=== PATIENT | male | born 1995 | race Caucasian/White ===

== ENCOUNTER 2020-03-08 16:17 | Outpatient (REF) | payer OTHER, SELFPAY | END 2020-03-08 16:18 | disposition home or self-care (01) | LOC: HO.LAB 16:17 | PROVIDERS: Visit Provider Internal Medicine | DX: Z20.828 Contact with and (suspected) exposure to other viral communicable diseases (principal) | CPT/HCPCS: C9803; U0003 ==

== ENCOUNTER → 2020-06-20 09:06 | Outpatient (BNVA) | payer OTHER, SELFPAY | PROVIDERS: Visit Provider Physician Assistant Medical | DX: S67.02XA Crushing injury of left thumb, initial encounter (principal); S61.012A Laceration without foreign body of left thumb without damage to nail, initial encounter; L08.9 Local infection of the skin and subcutaneous tissue, unspecified; W18.30XA Fall on same level, unspecified, initial encounter | CPT/HCPCS: 73130; 99203 ==

== ENCOUNTER → 2020-06-27 10:48 | Outpatient (BNVA) | payer OTHER, SELFPAY | PROVIDERS: Visit Provider Physician Assistant Medical | DX: S61.211A Laceration without foreign body of left index finger without damage to nail, initial encounter (principal); W31.2XXA Contact with powered woodworking and forming machines, initial encounter | CPT/HCPCS: 12001; 29085; 99203 ==

== ENCOUNTER → 2020-06-29 09:31 | Outpatient (BNVA) | payer OTHER, SELFPAY | PROVIDERS: Visit Provider Physician Assistant Medical | DX: S61.211D Laceration without foreign body of left index finger without damage to nail, subsequent encounter (principal); X58.XXXD Exposure to other specified factors, subsequent encounter | CPT/HCPCS: 99213 ==

== ENCOUNTER → 2020-07-03 12:49 | Outpatient (BNVA) | payer SELFPAY | PROVIDERS: Visit Provider Orthopaedic Surgery | DX: S61.210A Laceration without foreign body of right index finger without damage to nail, initial encounter (principal) | CPT/HCPCS: 99202 ==

== ENCOUNTER 2022-12-23 13:51 | Outpatient (REF) | payer OTHER, SELFPAY ==
--- NOTE | ~2022-12-23 | XR_ITS ---
EXAMINATION: XR SHOULDER, LEFT CLINICAL INFORMATION: Pain Chronic left shoulder pain, no injury. COMPARISON: None available. TECHNIQUE: AP external rotation, Grashey, scapular Y, and axillary views of the left shoulder. FINDINGS: The bones and soft tissues are normal. No fracture. Glenohumeral and acromioclavicular alignment is anatomic with normal joint space. No abnormal soft tissue calcifications. XR/XR shoulder LT min 2V IMPRESSION: No bony abnormality.
--- NOTE | ~2022-12-23 | XR_ITS ---
EXAMINATION: XR BILATERAL KNEES CLINICAL INFORMATION: Reason for Exam PAIN COMPARISON: None TECHNIQUE: 4 views of the bilateral knees FINDINGS: RIGHT KNEE: No acute fracture or dislocation. Joint spaces are maintained. No joint effusion. Soft tissues are unremarkable. LEFT KNEE: No acute fracture or dislocation. Joint spaces are maintained. No joint effusion. Soft tissues are unremarkable. XR/XR knee LT 3V IMPRESSION: * No acute osseous abnormality.
--- NOTE | ~2022-12-23 | XR_ITS ---
EXAMINATION: XR BILATERAL KNEES CLINICAL INFORMATION: Reason for Exam PAIN COMPARISON: None TECHNIQUE: 4 views of the bilateral knees FINDINGS: RIGHT KNEE: No acute fracture or dislocation. Joint spaces are maintained. No joint effusion. Soft tissues are unremarkable. LEFT KNEE: No acute fracture or dislocation. Joint spaces are maintained. No joint effusion. Soft tissues are unremarkable. XR/XR knee RT 3V IMPRESSION: * No acute osseous abnormality.
== END 2022-12-23 13:52 | disposition home or self-care (01) ==
LOC: HO.HHCX 13:51
PROVIDERS: Visit Provider Family Medicine
DX: M25.512 Pain in left shoulder (principal); Z13.89 Encounter for screening for other disorder
CPT/HCPCS: 73030; 73562

== ENCOUNTER 2023-08-08 02:27 | Emergency (ER) | payer OTHER, SELFPAY ==
--- NOTE | ~2023-08-08 | XR_ITS ---
EXAMINATION: XR CHEST CLINICAL INFORMATION: Shortness of breath COMPARISON: 01/09/2015. TECHNIQUE: Frontal view of the chest was obtained. FINDINGS: Lung volumes are symmetric. No focal consolidation is seen. No evidence of pneumothorax, pleural effusion, or pulmonary edema. The cardiomediastinal contour is unremarkable. No acute osseous findings are seen. XR/XR chest 1V IMPRESSION: No acute cardiopulmonary findings.
[2023-08-08 02:33] VITALS: BP 129/84; PULSE 95; RESP 20; TEMP 37.5; O2SAT 97; BMI 25.0
--- NOTE | 2023-08-08 02:36 | ECG_ITS ---
Test Reason : SOB Blood Pressure : / mmHG Vent. Rate : 096 BPM Atrial Rate : 096 BPM P-R Int : 176 ms QRS Dur : 110 ms QT Int : 324 ms P-R-T Axes : 060 055 051 degrees QTc Int : 409 ms Normal sinus rhythm Incomplete right bundle branch block Borderline ECG No previous ECGs available Referred By: Generic ED Physician Electronically Signed By:Timoteo Toussaint
[2023-08-08 02:49] LABS: MANUAL DIFF FLAG NO
[2023-08-08 02:50] LABS: Basophils Percent Auto 0.5 % (0-2); Eosinophils Absolute Auto 0.7 X10*3/uL (0.0-0.4); Eosinophils Percent Auto 7.6 % (0-4); Hematocrit 41.7 % (42.0-52.0); Hemoglobin 14.9 g/dl (14.0-18.0); Imm Gran Abs Auto 0.02 X10*3/uL (0.00-0.03); Imm Gran Pct Auto 0.2 % (0.0-0.4); Lymphocytes Absolute Auto 1.8 X10*3/uL (1.2-4.9); Mean Corpuscular HGB Conc 35.7 g/dl (31.0-36.0); Mean Corpuscular Hemoglobin 30.2 pg (27.0-33.0); Mean Corpuscular Volume 84.6 fL (80.0-98.0); Mean Platelet Volume 10.7 fL (9.4-12.4); Monocytes Absolute Auto 0.8 X10*3/uL (0.1-1.2); Monocytes Percent Auto 9.1 % (2-11); Neutrophils Absolute Auto 5.4 x10*3/uL (2.0-8.3); Neutrophils Percent Auto 61.6 % (45-73); Platelet Count 209 X10*3/uL (160-400); Red Blood Count 4.93 X10*6/uL (4.60-5.80); Red Cell Distribution Width 11.9 % (11.0-16.0); White Blood Count 8.7 X10*3/uL (4.8-10.8)
--- NOTE | 2023-08-08 02:53 | ED_ITS ---
HPI - SOB/Dyspnea General Chief Complaint: Dyspnea Stated Complaint: SOB/ASTHMA Time Seen by Provider: 08/08/23 02:52 Source: patient Mode of arrival: ambulatory Limitations: no limitations History of Present Illness HPI Narrative: Patient history of asthma been having shortness of breath since yesterday had cold symptoms with sore throat had low-grade fever yesterday dry cough using inhaler does not get sick very often Related Data Previous Rx's ?Medication ?Instructions ?Recorded benzonatate 200 mg capsule 200 mg PO TID PRN cough #20 caps 08/08/23 cefuroxime axetil 500 mg tablet 500 mg PO BID 5 days #10 tabs 08/08/23 prednisone 20 mg tablet 40 mg (2 x 20 mg) PO DAILY #10 tabs 08/08/23 Allergies Allergy/AdvReac Type Severity Reaction Status Date / Time No Known Allergies Allergy Verified 08/08/23 02:35 Review of Systems 2 Review of Systems: Yes all other systems are reviewed and are negative [facility] Social History Social History Alcohol intake: never Smoked in Last 30 Days: Yes Use of substances other than those prescribed or required for medical reasons: No Advance Directives: No Advance Directives Information Provided: Yes Current occupational status: employed Current occupation: [employer]/rt handed Physical Exam 2 Vital Signs: Vital Signs: Last Vital Signs Temp 97.9 F 08/08/23 05:28 Pulse 82 08/08/23 05:28 Resp 16 08/08/23 05:28 BP 113/75 08/08/23 05:28 Pulse Ox 96 08/08/23 05:28 O2 Del Method Room Air 08/08/23 05:28 BMI result Body Mass Index 25.0 Appearance: Alert. Oriented X3. No acute distress. ENT: Pharynx erythematous Oral Mucosa moist clear rhinorrhea Neck: Normal inspection. Neck supple. CVS: Normal heart rate and rhythm. Pulses normal. Respiratory: No respiratory distress. Equal air entry bilateral, no wheezing/rales/rhonchi prolonged expiration Abdomen: Soft and nontender. Skin: Skin warm and dry. Normal skin color. Normal skin turgor. Extremities: No lower extremity edema. No calf tenderness Neuro: Oriented X 3. Medications Administered Discontinued Medications Generic Name Dose Route Start Last Admin Trade Name Freq PRN Reason Stop Dose Admin Albuterol Sulfate 2.5 mg/ 5 mg 08/08/23 03:05 08/08/23 03:16 Albuterol Sulfate 2.5 mg INHALE 08/08/23 03:06 5 mg ONCE ONE Administration Dexamethasone 10 mg 08/08/23 02:56 08/08/23 03:08 Dexamethasone 2 Mg Tablet PO 08/08/23 02:57 10 mg ONCE ONE Administration Medical Decision Making Medical Decision Making [facility] Narrative: Patient with asthmatic bronchitis with sore throat discharge patient home on prednisone and Ceftin Differential Diagnosis Differential Diagnoses: The differential diagnosis associated with the presentation includes Viral pharyngitis/viral syndrome/COVID/flu Lab Data [facility] Lab Attestation statement: I reviewed the patient's lab results. 08/08/23 02:44 08/08/23 02:44 Labs: Lab Results 08/08/23 08/08/23 Range/Units 02:44 03:00 WBC 8.7 (4.8-10.8) X10*3/uL RBC 4.93 (4.60-5.80) X10*6/uL Hgb 14.9 (14.0-18.0) g/dl Hct 41.7 L (42.0-52.0) % MCV 84.6 (80.0-98.0) fL MCH 30.2 (27.0-33.0) pg MCHC 35.7 (31.0-36.0) g/dl RDW 11.9 (11.0-16.0) % Plt Count 209 (160-400) X10*3/uL MPV 10.7 (9.4-12.4) fL Immature Gran % (Auto) 0.2 (0.0-0.4) % Neut % (Auto) 61.6 (45-73) % Lymph % (Auto) 21.0 (20-40) % Petroleum % (Auto) 9.1 (2-11) % Eos % (Auto) 7.6 H (0-4) % Baso % (Auto) 0.5 (0-2) % Lymph # (Auto) 1.8 (1.2-4.9) X10*3/uL Petroleum # (Auto) 0.8 (0.1-1.2) X10*3/uL Eos # (Auto) 0.7 H (0.0-0.4) X10*3/uL Baso # (Auto) 0.0 (0.0-0.2) X10*3/uL Abs Immat Gran (auto) 0.02 (0.00-0.03) X10*3/uL Absolute Neuts (auto) 5.4 (2.0-8.3) x10*3/uL Absolute Nucleated RBC 0.000 (0.0-0.012) X10*3/uL Nucleated RBC % (auto) 0.0 (0.0-0.2) /100WBC Sodium 142 (135-145) mmol/L Potassium 3.4 (3.3-5.1) mmol/L Chloride 107 (96-108) mmol/L Carbon Dioxide 26 (22-29) mmol/L Anion Gap 12 (12-20) BUN 17 H (9-16) mg/dL Creatinine 1.03 (0.5-1.4) mg/dL Estim Creat Clear Calc 93.7 Estimated GFR > 60 Random Glucose 119 H (60-115) mg/dL Calcium 10.0 (8.4-10.2) mg/dL Troponin I High Sens < 2.7 (<3.5-35.0) ng/L Influenza Type A (PCR) NEGATIVE (Negative) Influenza Type B (PCR) NEGATIVE (Negative) RSV RNA Qual (PCR) NEGATIVE (Negative) SARS-CoV-2 RNA (RT-PCR) NEGATIVE (Negative) S. pyogenes GrpA GEORGE Negative (Negative) Discharge Plan Discharge Clinical Impression: Asthma with exacerbation, Upper respiratory infection, viral Patient Disposition: Home, Self-Care Instructions: Asthma (ED), Upper Respiratory Infection (ED) Additional Instructions: Use your inhaler 2 puffs every 4-6 hours as needed for wheezing Prednisone and antibiotic as prescribed Cough drops as prescribed Your COVID, influenza/RSV/strep are negative Prescriptions: New benzonatate 200 mg capsule 200 mg PO TID PRN (Reason: cough) Qty: 20 0RF prednisone 20 mg tablet 40 mg PO DAILY Qty: 10 0RF cefuroxime axetil 500 mg tablet 500 mg PO BID 5 Days Qty: 10 0RF Print Language: [place]se
[2023-08-08] MEDS: dexAMETHasone 2 MG TABLET 10 MG PO (03:08)
[2023-08-08 03:11] VITALS: PULSE 91; RESP 18; O2SAT 96
[2023-08-08 03:16] LABS: Anion Gap 12 (12-20); Blood Urea Nitrogen 17 mg/dL (9-16); Carbon Dioxide 26 mmol/L (22-29); Chloride 107 mmol/L (96-108); Creatinine Clr Calc Pharmacy 93.7; Estimated Glomerular Filt Rate > 60; Glucose Random 119 mg/dL (60-115); Potassium 3.4 mmol/L (3.3-5.1); Sodium 142 mmol/L (135-145)
[2023-08-08] MEDS: Albuterol Sulfate 2.5 MG, Albuterol Sulfate (0.083%) 2.5 MG 5 MG INHALE (03:16)
[2023-08-08 03:21] LABS: IDNOW Serial# 6674DD1D; Strep A Nucleic Acid Negative (Negative)
[2023-08-08 03:27] LABS: Troponin-I High Sensitivity < 2.7 ng/L (<3.5-35.0)
[2023-08-08 03:51] LABS: Influenza A PCR NEGATIVE (Negative); Influenza B PCR NEGATIVE (Negative); Resp Syncy Virus RNA Qual PCR NEGATIVE (Negative); SARS COV2 PCR INHOUSE NEGATIVE (Negative)
[2023-08-08 05:28] VITALS: BP 113/75; PULSE 82; RESP 16; TEMP 36.6; O2SAT 96
[2023-08-08 05:40] VITALS: BP 113/75; PULSE 82; RESP 16; TEMP 36.6; O2SAT 96
== END 2023-08-08 05:41 | disposition home or self-care (01) ==
PROVIDERS: Emergency Provider Internal Medicine
DX: J45.901 Unspecified asthma with (acute) exacerbation (principal); J06.9 Acute upper respiratory infection, unspecified; R06.02 Shortness of breath; R50.9 Fever, unspecified; R05.9 Cough, unspecified; J02.9 Acute pharyngitis, unspecified
CPT/HCPCS: 0241U; 36415; 71045; 80048; 84484; 85025; 87651; 93005; 94640; 94664; 99284; 99285; J8540

== ENCOUNTER → 2023-08-08 02:36 | Outpatient (BNV) | payer OTHER, SELFPAY | PROVIDERS: Emergency Provider Internal Medicine; Visit Provider Internal Medicine Cardiovascular Disease | DX: R06.02 Shortness of breath (principal) | CPT/HCPCS: 93010 ==

== ENCOUNTER 2024-04-25 11:18 | Outpatient (REF) | payer OTHER, SELFPAY ==
--- OUTSIDE RECORDS SUMMARY | 2024-04-25 16:13 | XMS_ITS | Encounter Summary ---
Author Organization [facility] Address [address] [place] [address] Care Team Providers Care Fine Chemicals Operator Name Role Phone Ann-Marie Maldonado MD Primary Care Provider [phone] Reason for Visit * Reason Comments Pre-visit Planning SDOH Screening negat cl and Tobacco screening negative Encounter Details Date Type Department Care Team ([facility] st Contact Info) Description 04/14/2024 Patient Outreach [facility] [address], [place] [phone] Ann-Marie Maldonado MD [address] [place] [address] Pre-visit Planning (SDOH Screening negative and Tobacco screening negative) Social History Tobacco Use Types Packs/Day Years Used Date Smoking Tobacco: Former Cigarettes Passive Smoke Exposure: Current Smokeless Tobacco: Current Comments:Smokes vapes Alcohol Use Standard Drinks/Week Comments Not Asked 0 (1 standard drink = 0.6 oz pur e alcohol) rarely drinks beer Depression Answer Date Recorded Patient Health Questionnaire-9 Score 6 01/12/2024 Patient Health Questionnaire-9 Score 6 01/12/2024 Last PHQ-9: Questionnaire Data Not on file 1 Housing Stability Answer Date Recorded What is your housing situation today? I have tiffany mcintyre 01/12/[address] you li ve. Do you have problems with any of the following? None of the above 01/12/2024 Food Insecurity Answer Date Recorded Within the past 12 months, y ou worried that your food would run out before you got money to buy more: Never True 01/12/2024 Within the past 12 months,th e food you bought just didn't last and you didn't have enough money to get more: Never True Transportation Answer Date Recorded In the past 12 months, has l ack of transportation kept you from medical appts, meetings, work or from getting things needed for daily living? No 01/12/2024 Utilities Answer Date Recorded In the past 12 months, has t he electric, gas, oil or water company threatened to shut off services in your home? No 01/12/2024 Depression Answer Date Recorded Patient Health Questionnaire-2 Score 2 01/12/2024 Internet Access Answer Date Recorded Internet Access Q1 Yes 01/12/2024 Internet Access Q2 Not on file 01/12/2024 Sex and Gender Information Value Date Recorded Sex Assigned at Male 01/27/2022 10:16 AM EDT Legal Sex Male 10:16 AM EDT Gender Identity Male 01/27/2022 10:16 AM EDT Sexual Orientation Don't know 01/27/2022 10 :16 AM EDT documented as of this encounter Progress Notes * Magali Combs - 04/14/2024 10:07 AM EST CC Magali Roland placed successful outbound call to patient for pre-visit planning. Patient name and confirmed. Patient confirms appt date and time, and has transportation arrangements. Biggest concern for appointment at this time is been waiting for a referral for a urgent care physician and network control supervisor.Patient advised to bring to appointment a photo id and insurance card. Appropriate screenings completed in anticipation of appointment. documented in this encounter Plan of Treatment Not on file documented as of this encounter Visit Diagnoses Not on filedocumented in this encounter Additional Health Concerns Assessment Noted Time PHQ-9 Depression Total Score: 6 01/12/20 24 11:06 AM EDT documented as of this encounter Care Teams Fine Chemicals Operator Relationship Specialty Start Date End Date Ann-Marie Maldonado MD [address] [place] [id number] PCP - General Family Medicine 05/07/22 documented as of this encounter
--- OUTSIDE RECORDS SUMMARY | 2024-04-25 16:13 | XMS_ITS | Encounter Summary ---
Author Organization [facility] Address [address] [facility] [address] [place] [address] Care Team Providers Care Improvement Lead Name Role Phone Ann-Marie Maldonado MD Primary Care Provider [phone] Encounter Details Date Type Department Care Team (Late st Contact Info) Description 04/25/2024 10:30 AM EST Office Visit [facility] [address] [place], [place] [phone] Ann-Marie Maldonado MD [address] [place], [place] [phone] Routine general medical examination at a health care facility (Primary Dx); Mild intermittent asthma without complication; Allergic rhinitis, unspecified seasonality, unspecified trigger; Immunity status testing; Routine screening for STI (sexually transmitted infection); Screening for lipid disorders Social History Tobacco Use Types Packs/Day Years [...] AM EDT documented as of this encounter Last Filed Vital Signs Vital Sign Reading Time Taken Comments Blood Pressure 121/83 04/25/2024 10:41 AM EST Pulse 83 04/25/2024 10:41 AM EST Temperature 36.3 ??C (97.3 ??F) 04/25/2024 10:[address] Respiratory Rate 20 04/25/2024 10:41 AM EST Oxygen Saturation 98% 04/25/2024 10:41 AM EST Inhaled Oxygen Concentration - - Weight 66.3 kg (146 lb 3.2 oz) 04/25/2024 10:41 AM EST Height 165.1 cm (5' 5 ) 04/25/2024 10:41 AM EST Body Mass Index 24.33 04/25/2024 10:41 AM EST documented in this encounter Miscellaneous Notes * Assessment & Plan Note - Venkat Blount - 04/25/2024 11:24 AM ESTAssociated Problem(s): Allergic rhinitis Previously tried Antihistamines, only medication that worked was Benadryl -Rx Cetrizine, as needed -Rx Flonase, as needed -Referred to [facility] in July 2022 since this condition is Chronic; there is a long waiting list * Assessment & Plan Note - Venkat Blount - 04/25/2024 11:24 AM ESTAssociated Problem(s): Asthma - Stop vaping - Continue albuterol inhaler - Ordered PFT documented in this encounter Plan of Treatment Scheduled Orders Name Type Priority Associated Diagnoses Orde r Schedule Syphilis Screen Lab Routine Routine screening for STI (sexually transmitted infection) Expected: 04/25/2024 (Approximate), Expires: 04/25/2025 Hepatitis C Antibody with Reflex to HCV, RNA, Quantitative, Real-Time PCR Lab Routine Routine screening for STI (sexually transmitted infection) Expected: 04/25/2024 (Approximate), Expires: 04/25/2025 Hepatitis B Surface Antibody, Qualitative Lab Routine Routine screening for STI (sexually transmitted infection) Expected: 04/25/2024 (Approximate), Expires: 04/25/2025 Hepatitis B Core Antibody, Total Lab Routine Routine screening for STI (sexually transmitted infection) Expected: 04/25/2024 (Approximate), Expires: 04/25/2025 Chlamydia/N. Gonorrhoeae RNA, TMA, Urogenitial Microbiology Routine Routine screening for STI (sexually transmitted infection) Expected: 04/25/2024 (Approximate), Expires: 04/25/2025 HIV-1/2 Antigen and Antibodies, Fourth Generation, with Reflexes Lab Routine Routine screening for STI (sexually transmitted infection) Expected: 04/25/2024 (Approximate), Expires: 04/25/2025 Hepatitis B surface antigen, EIA Lab Routine Routine screening for STI (sexually transmitted infection) Expected: 04/25/2024 (Approximate), Expires: 04/25/2025 Hepatitis A Antibody, Total Lab Routine Immunity status testing Expected: 04/25/2024 (Approximate), Expires: 04/25/2025 documented as of this encounter Visit Diagnoses Diagnosis Routine general medical examination at a health care facility- Primary Mild intermittent asthma without complication Allergic rhinitis, unspecified seasonality, unspecified trigger Immunity status testing Antibody response examination Routine screening for STI (sexually transmitted infection) Screening examination for venereal disease Screening for lipid disorders documented in this encounter Additional Health Concerns Assessment Noted Time PHQ-9 Depression Total Score: 6 01/12/20 24 11:06 AM EDT documented as of this encounter Care Teams Improvement Lead Relationship Specialty Start Date End Date Ann-Marie Maldonado MD [address] [place] [phone] PCP - General Family Medicine 05/07/22 documented as of this encounter
--- OUTSIDE RECORDS SUMMARY | 2024-04-25 16:13 | XMS_ITS | Clinical Summary ---
Author Organization [employer] [facility] Address [address] [place] [address] Care Team Providers Care Communication Spec Name Role Phone Ann-Marie Maldonado MD Primary Care Provider [phone] Allergies Active Allergy Reactions Criticality Noted Date Comments Shellfish Allergy High 05/07/2022 Medications albuterol 108 (90 Base) MCG/ACT inhalerIndicati ons:Mild intermittent asthma without complication Inhale 2 puffs every 4 (four) hours if needed for wheezing or shortness of breath. Maximum 8 puffs per day 18 g 3 025 2025 Active cetirizine (ZyrTEC) 10 MG tablet Take 1 tablet (10 mg) by mouth Once per day. 90 tablet Active EPINEPHrine (Epipen) 0.3 MG/0.3ML injection syringe Inject 0.3 mL (0.3 mg) as directed 1 (one) time for 1 dose. use as directed for allergic reaction and then call 911 2 each Active fluticasone (Flonase) 50 MCG/ACT nasal sprayIndication s:Allergic rhinitis, unspecified seasonality, unspecified trigger Administer 1-2 sprays into each nostril Once per day. Shake gently. Before first use, prime pump. After use, clean tip and replace cap. 16 g 025 2025 Active albuterol (2.5 MG/3ML) 0.083% nebulizer solution Take 3 mL (2.5 mg) by nebulization every 4 (four) hours if needed for wheezing or shortness of breath (Maximum 4 treatments per day). 75 mL 1 025 2025 Active albuterol 108 (90 Base) MCG/ACT inhalerIndicati ons:Mild intermittent asthma without complication Inhale 2 puffs every 4 (four) hours if needed for wheezing or shortness of breath. Maximum 8 puffs per day 18 g 3 024 2024 Discontinued(R eorder (will not trigger notification to Pharmacy)) cetirizine (ZyrTEC) 10 MG tablet Take 1 tablet (10 mg) by mouth Once per day. 90 tablet 3 024 2024 Discontinued(R eorder (will not trigger notification to Pharmacy)) fluticasone (Flonase) 50 MCG/ACT nasal sprayIndication s:Allergic rhinitis, unspecified seasonality, unspecified trigger Administer 1-2 sprays into each nostril Once per day. Shake gently. Before first use, prime pump. After use, clean tip and replace cap. 16 g 2 024 2024 Discontinued(R eorder (will not trigger notification to Pharmacy)) EPINEPHrine (Epipen) 0.3 MG/0.3ML injection syringe Inject 0.3 mL (0.3 mg) as directed 1 (one) time for 1 dose. use as directed for allergic reaction and then call 911 2 each 1 024 2024 Discontinued(R eorder (will not trigger notification to Pharmacy)) Active Problems Problem Noted Date Diagnosed Date Elevated blood pressure read ing without diagnosis of hypertension 09/07/2023 Assessment & Plan (01/12/2024 11:02 AM EDT): -second measurement was normal -continue lifestyle modifications -f/u in 6 months Assessment & Plan (09/07/2023 10:52 AM EDT): -second measurement was normal -continue lifestyle modifications -f/u in 4 months Chronic pain of both knees 12/23/2022 Assessment & Plan (09/07/2023 10:50 AM EDT): - XR normal - continue judicious use of NSAIDs - obtain appropriate rest - encouraged stretching and ROM exercises at home Assessment & Plan (12/23/2022 2:34 PM EDT): - evaluate with XR - continue judicious use of NSAIDs - obtain appropriate rest - encouraged stretching and ROM exercises at home Chronic left shoulder pain 12/23/2022 Assessment & Plan (09/07/2023 10:50 AM EDT): - normal XR - continue ROM and stretching exercise at home - follow OSHA standards / recommendations; practice safe maneuver to lift things at work Assessment & Plan (12/29/2022 4:58 AM EDT): - evaluate with X-ray - continue ROM and stretching exercise at home - follow OSHA standards / recommendations; practice safe maneuver to lift things at work Allergic rhinitis 07/21/2022 Assessment & Plan (04/25/2024 11:24 AM EST): Previously tried Antihistamines, only medication that worked was Benadryl -Rx Cetrizine, as needed -Rx Flonase, as needed -Referred to [facility] in July 2022 since this condition is Chronic; there is a long waiting list Assessment & Plan (01/12/2024 11:02 AM EDT): Previously tried Antihistamines, only medication that worked was Benadryl -Rx Cetrizine, as needed -Rx Flonase, as needed -Referred to [facility] in July 2022 since this condition is Chronic; there is a long waiting list Assessment & Plan (09/07/2023 10:51 AM EDT): Previously tried Antihistamines, only medication that worked was Benadryl -Rx Cetrizine, as needed -Rx Flonase, as needed -Referred to [facility] in July 2022 since this condition is Chronic; there is a long waiting list Assessment & Plan (12/29/2022 5:00 AM EDT): Previously tried Antihistamines, only medication that worked was Benadryl -Rx Benadryl 25 mg at bedtime, as needed -Rx Flonase, as needed -Referred to [facility] in July 2022 since this condition is Chronic; there is a long waiting list Assessment & Plan (07/21/2022 3:34 PM EDT): Previously tried Antihistamines, only medication that worked was Benadryl -Rx Benadryl 25 mg at bedtime, as needed -Rx Flonase, as needed -Refer to [facility] since this condition is Chronic Asthma 05/07/2022 Assessment & Plan (04/25/2024 11:24 AM EST): - Stop vaping - Continue albuterol inhaler - Ordered PFT Assessment & Plan (01/12/2024 11:01 AM EDT): - Stop vaping - Continue albuterol inhaler - Ordered PFT Assessment & Plan (09/07/2023 10:49 AM EDT): - Stop vaping - Continue albuterol inhaler - Ordered PFT Assessment & Plan (12/29/2022 4:57 AM EDT): - Stop vaping - Continue albuterol inhaler - Consider PFT in near future Assessment & Plan (07/21/2022 3:36 PM EDT): - Stop vaping - Refill albuterol inhaler - Consider PFT in near future Assessment & Plan (05/07/2022 5:33 PM EST): - Stop vaping - Refill albuterol inhaler - Consider PFT in near future Depression 05/07/2022 Assessment & Plan (01/12/2024 11:02 AM EDT): - Seen by clinician on 05/07/22, PHQ9 score 15 - Prescribed sertraline 25 mg daily on 05/07/22, but he has not picked up yet. He will start today - Pt's dog has been serving as a therapy animal Assessment & Plan (12/23/2022 2:32 PM EDT): - Seen by clinician on 05/07/22, PHQ9 score 15 - Prescribed sertraline 25 mg daily on 05/07/22, but he has not picked up yet. He will start today - Pt's dog has been serving as a therapy animal Assessment & Plan (07/31/2022 11:05 AM EDT): - Seen by clinician on 05/07/22, PHQ9 score 15 - Prescribed sertraline 25 mg daily on 05/07/22, but he has not picked up yet. He will start today - Pt's dog has been serving as a therapy animal Assessment & Plan (05/07/2022 12:19 PM EST): - PHQ9 = 15 - Seen by [facility] clinician today; pt will be connected with a long-term CBT - Prescribe sertraline 25 mg daily - Pt's dog has been serving as a therapy animal; agree to write a letter so that he can keep the dog. Pt will be responsible for taking care of his dog according to housing safety and sanitary regulation Anxiety 05/07/2022 Overview (12/23/2022): Refer to Depression History of ADHD 05/07/2022 Assessment & Plan (05/07/2022 5:31 PM EST): - Consider clinical pharmacology consult Current vaping on some days 05/07/2022 Assessment & Plan (01/12/2024 11:02 AM EDT): - Encouraged to reduce use and eventually stop Assessment & Plan (09/07/2023 10:53 AM EDT): - Encouraged to reduce use and eventually stop Assessment & Plan (12/23/2022 2:34 PM EDT): - Encouraged to reduce use and eventually stop Assessment & Plan (05/07/2022 5:32 PM EST): - Encouraged to reduce use and eventually stop Encounters Date Type Department Care Team Description 04/25/2024 10:30 AM EST Office Visit [facility] [address] [place] [address] Ann-Marie Maldonado MD Routine general medical examination at a health care facility (Primary Dx); Mild intermittent asthma without complication; Allergic rhinitis, unspecified seasonality, unspecified trigger; Immunity status testing; Routine screening for STI (sexually transmitted infection); Screening for lipid disorders 04/25/2024 Travel 04/14/2024 Patient Outreach [facility] [address] [place] [address] Ann-Marie Maldonado MD Pre-visit Planning (SDOH Screening negative and Tobacco screening negative) from Last 3 Months Immunizations Name Administration Dates Next Due Pneumococcal Conjugate PCV 20 09/07/2023 Tdap 09/07/2023 Social History Tobacco Use Types Packs/Day Years Used Date Smoking Tobacco: Former Cigarettes Passive Smoke Exposure: Current Smokeless Tobacco: Current Tobacco Cessation:Ready to Q uit: Not Asked; Counseling Given: Not Answered Comments:Smokes vapes Alcohol Use Standard Drinks/Week Comments Not Asked 0 (1 standard drink = 0.6 oz pur e alcohol) rarely drinks beer Depression Answer Date Recorded Patient Health Questionnaire-9 Score 6 01/12/2024 Patient Health Questionnaire-9 Score 6 01/12/2024 Last PHQ-9: Questionnaire Data Not on file 1 Housing Stability Answer Date Recorded What is your housing situation today? I have tiffanyjacklyn mcintyre 01/12/[address] you [...] Don't know 01/27/2022 10 :16 AM EDT Last Filed Vital Signs Vital Sign Reading [...] Mass Index 24.33 04/25/2024 10:41 AM EST Plan of Treatment Health Maintenance Due Date Last Done Comments HIV Screening 1996 Lipid Panel 1996 Family Planning (PISQ) 07/10/2011 Hepatitis C Screening 2014 Hepatitis B Vaccines (1 of 3 - 19+ 3-dose series) 07/10/2015 COVID-19 Vaccine ( - 2023-2 5 season) 2023 Influenza Vaccine (#1) 2023 Depression Screening 01/11/2025 01/12/2024, 01/12/2024 Tobacco Screening 01/11/2025 01/12/2024 SDOH Screening 04/14/2025 04/14/2024 Alcohol/Substance Use Screening 04/25/2025 04/25/2024 DTaP/Tdap/Td Vaccines (2 - T d or Tdap) 09/06/2033 09/07/2023 Zoster Vaccines (1 of 2) 2046 RSV Patients and Patients Aged 60 years or older (1 - 1-dose 75+ series) 07/10/2071 Pneumococcal Vaccine: Pediatrics (0 to 5 Years) and At-Risk Patients (6 to 64 Years) Completed 09/07/2023 HIB Vaccines Aged Out No longer eligi ble based on patient's age to complete this topic HPV Vaccines Aged Out No longer eligi ble based on patient's age to complete this topic Hepatitis A Vaccines Aged Out No long er eligible based on patient's age to complete this topic IPV Vaccines Aged Out No longer eligi ble based on patient's age to complete this topic Meningococcal Vaccine Aged Out No anuja wendy eligible based on patient's age to complete this topic RSV under 20 months Aged Out No longe r eligible based on patient's age to complete this topic Rotavirus Vaccines Aged Out No longer eligible based on patient's age to complete this topic Insurance [employer] PPO Care Teams Communication Spec Relationship Specialty Start Date End Date Ann-Marie Maldonado MD [address] [place] [address] PCP - General Family Medicine 05/07/22
--- OUTSIDE RECORDS SUMMARY | 2024-04-25 16:13 | XMS_ITS | Encounter Summary ---
Author Organization [employer] Address [address] [place] [address] Care Team Providers Care Reducing Salon Attendant Name Role Phone Ann-Marie Maldonado MD Primary Care Provider [phone] Encounter Details Date Type Department Care Team (Latest Contact Info) Description 04/25/2024 Travel Social History Tobacco Use Types Packs/Day Years [...] AM EDT documented as of this encounter Plan of Treatment Not on file documented as of this encounter Visit Diagnoses Not on filedocumented in this encounter Additional Health Concerns Assessment Noted Time PHQ-9 Depression Total Score: 6 01/12/20 24 11:06 AM EDT documented as of this encounter Care Teams Reducing Salon Attendant Relationship Specialty Start Date End Date Ann-Marie Maldonado MD [address] [place] [id number] PCP - General Family Medicine 05/07/22 documented as of this encounter
[2024-04-26 08:14] LABS: Syphilis Screen Nonreactive (Nonreactive)
[2024-04-26 08:32] LABS: HBS Num1 0.93 mIU/mL (0-7.99); HBc Num1 0.08 S/CO (0.00-0.79); HIV AB/AG Nonreactive (Nonreactive); HIV Num 1 0.05 S/CO (0.00-0.99); Hepatitis B Core Antibody Nonreactive (Nonreactive); Hepatitis B Surface Antigen Negative (Negative); ~HepC Num1 0.25 S/CO (0.00-0.79); ~Hepatitis B Surface Antibody NONREACTIVE (Nonreactive); ~Hepatitis C Antibody Nonreactive (Nonreactive)
[2024-04-26 08:38] LABS: Hepatitis A Antibody IgG Nonreactive (Nonreactive); ~Hepatitis A Antibody IgG 0.38 S/CO (0.00-0.99)
== END 2024-04-25 11:19 | disposition home or self-care (01) ==
LOC: HO.HHCL 11:18
PROVIDERS: Visit Provider Family Medicine
DX: Z01.84 Encounter for antibody response examination (principal); Z11.4 Encounter for screening for human immunodeficiency virus [HIV]; Z20.2 Contact with and (suspected) exposure to infections with a predominantly sexual mode of transmission
CPT/HCPCS: 36415; 86704; 86706; 86708; 86780; 86803; 87340; 87389

== ENCOUNTER 2024-06-02 10:40 | Emergency (ER) | payer OTHER, SELFPAY ==
[2024-06-02 10:42] VITALS: BP 134/92; PULSE 73; RESP 20; TEMP 36.6; O2SAT 98; BMI 22.7
[2024-06-02] MEDS: diphenhydrAMINE HCL 25 MG CAPSULE PO (10:49)
--- NOTE | 2024-06-02 10:59 | ED_ITS ---
HPI - General Adult General Chief complaint: Allergic Reaction Stated complaint: Allergic reaction? Time Seen by Provider: 06/02/24 10:58 Source: patient Mode of arrival: ambulatory Limitations: no limitations History of Present Illness ED Provider: Shefali Pelaez PA-C HPI narrative: Patient is a 28 year old assigned male at with no reported medical history presenting to the emergency department today with left sided facial swelling and itchiness. Patient states that he was at a family member's house when he developed left eye redness, swelling, and itchiness. Patient states that he feels like his entire left side of his face is swollen with some itchiness in his throat. Patient states that he is not aware of any allergen exposure. Patient denies any dizziness, lightheadedness, abdominal pain, nausea, vomiting, fever, chills, blurry vision, double vision, loss of vision, chest pain, difficulty breathing, shortness of breath, back pain, night sweats, pain with urination, increased urinary frequency, increased urinary urgency, blood in his urine or stool, syncope or a near syncopal episode, recent trauma or falls, bowel incontinence, bladder incontinence, or any other complaints at this time. Location: face and left Relieving factors: none Exacerbating factors: none Associated symptoms: denies other symptoms Treatments prior to arrival: none Related Data Previous Rx's ?Medication ?Instructions ?Recorded benzonatate 200 mg capsule 200 mg PO TID PRN cough #20 caps 08/08/23 cefuroxime axetil 500 mg tablet 500 mg PO BID 5 days #10 tabs 08/08/23 prednisone 20 mg tablet 40 mg (2 x 20 mg) PO DAILY #10 tabs 08/08/23 epinephrine 0.3 mg/0.3 mL 0.3 mg (0.3 mL) IM Q10M PRN 06/02/24 injection, auto-injector anaphylaxis #2 ea prednisone 20 mg tablet 20 mg PO DAILY 7 days #7 tabs 06/02/24 Allergies Allergy/AdvReac Type Severity Reaction Status Date / Time shellfish derived [shellfish] Allergy Anaphylaxis Verified 06/02/24 10:46 cat dander [cats] AdvReac Itchy Eyes Verified 06/02/24 10:46 Review of Systems 2 Constitutional: Constitutional: Reports no additional constitutional complaints, Denies chills, Denies fever(s) and Denies night sweats Eyes: Eyes: Reports no additional eye complaints, Denies blurry vision, Denies change in vision, Denies diplopia, Denies eye discharge, Denies loss of vision and Denies eye pain Comments: left sided swelling / itchiness / redness ENT: Denies dizziness Comments: left sided facial swelling / itchiness / redness throat itchiness Cardiovascular: Cardiovascular: Reports no additional cardiovascular complaints, Denies chest pain, Denies lightheadedness, Denies Loss of Consciousness and Denies dyspnea Respiratory: Respiratory: Reports no additional respiratory complaints and Denies dyspnea Gastrointestinal: Gastrointestinal: Reports no additional gastrointestinal complaints, Denies abdominal pain, Denies melena, Denies hematochezia, Denies change in bowel habits and Denies change in stool character Genitourinary: Genitourinary: Reports no additional male genitourinary complaints, Denies hematuria, Denies oliguria, Denies difficulty urinating, Denies dysuria, Denies urinary frequency, Denies urinary hesitancy, Denies urinary incontinence and Denies urinary urgency Musculoskeletal: Musculoskeletal: Reports no additional musculoskeletal complaints, Denies numbness and Denies tingling Neurologic: Denies dizziness, Denies loss of vision, Denies numbness and Denies tingling Psychiatric: Psychiatric: Reports no additional psychiatric complaints Endocrine: Endocrine: Reports no additional endocrine complaints Hematologic/Lymphatic: Hematologic/Lymphatic: Reports no additional hematologic/lymphatic complaints Allergic/Immunologic: Allergic/Immunologic: Reports no additional allergic/immunologic complaints [facility] Past Medical History Attestation statement: The following information was validated with the patient. Source: old records reviewed and nursing notes reviewed Social History Social History Alcohol intake: never Smoked in Last 30 Days: No Use of substances other than those prescribed or required for medical reasons: No Advance Directives: No Advance Directives Information Provided: No Current occupational status: employed Current occupation: [employer]/rt handed Physical Exam ED Vital Signs: Vital Signs - 24 hr 06/02/24 10:42 06/02/24 13:10 06/02/24 13:49 Temperature 98 F 97.7 F 98.0 F Pulse Rate 73 65 62 Respiratory Rate 20 14 16 Blood Pressure 134/92 H 96/53 L 100/57 L Pulse Oximetry 98 97 96 Oxygen Delivery Method Room Air Room Air Room Air BMI result Body Mass Index 22.7 Const General: cooperative, no acute distress, alert and awake Nutritional Appearance: well nourished Orientation/consciousness: patient oriented x3 Limitations: no limitations HENMT Head: Yes normal to inspection and Yes atraumatic Ears: hearing grossly normal bilaterally and external ears normal General nose exam: Normal external nose present, no nasal discharge noted and no epistaxis Face and sinus: Yes normal facial exam, No abrasion and No laceration Mouth: Normal oral and palatal mucosa present, no drooling and no muffled voice Eyes Other: minimal left lower lid swelling and erythema Conjunctivae: conjunctivae normal Pupils: Equal, round and reactive pupils present EOM: EOMs intact bilaterally Neck Neck: Yes normal visual inspection, Yes full ROM and Yes no lymphadenopathy Chest Chest palpation & inspection: normal inspection of the chest Resp Effort & Inspection: normal respiratory effort and able to speak in complete sentences GI Inspection: Yes normal to inspection Neuro General: patient oriented x3, moves all extremities and CN's II-XI intact bilaterally Cranial nerves: Yes Equal, round and reactive pupils present Cognition (Neuro): normal cognition Extrem General: Yes normal to inspection, Yes full ROM and Yes capillary refill normal Psych Appearance: grossly normal Mental Status: mental status grossly normal Affect: normal affect Attitude: cooperative Thought process: Normal thought process present Thought content: Normal thought content present Insight: Good insight present (Psych) Medications Administered Discontinued Medications Generic Name Dose Route Start Last Admin Trade Name Freq PRN Reason Stop Dose Admin Diphenhydramine HCl 25 mg 06/02/24 10:46 06/02/24 10:49 Diphenhydramine Hcl 25 Mg Capsule PO 06/02/24 10:47 25 mg ONCE ONE Administration Famotidine 20 mg 06/02/24 11:12 06/02/24 11:43 Famotidine/Pf 20 Mg/2 Ml Vial IVPUSH 06/02/24 11:13 20 mg ONCE ONE Administration Methylprednisolone Sodium Succinate 60 mg 06/02/24 11:12 06/02/24 11:43 Methylprednisolone Sod Succ 125 Mg/2 Ml Vial IVPUSH 06/02/24 11:13 60 mg ONCE ONE Administration Medical Decision Making Medical Decision Making MDM Narrative: Patient is a 28 year old assigned male at with no reported medical history presenting to the emergency department today with left sided facial swelling and itchiness. Patient's physical exam was as noted in the physical exam portion of this note. Patient's blood work was unremarkable. I explained my physical exam findings as well as all test results to the patient. I answered all questions asked by the patient. Patient received IV solu-medrol, pepcid, and PO Benadryl which, upon re-evaluation, he stated it helped his symptoms significantly. Patient's swelling was improved and he continued to not have any uvular or mucousal swelling in his mouth / throat. Given the unknown nature of the allergen and initial itching sensation in his throat - will prescribe epi- pen. I stressed the importance of the patient taking his medication as directed (either prescribed or as the over the counter packaging recommends). I stressed the importance of the patient following up with his primary care provider and an black oxide operator. I stressed the importance of the patient returning to the emergency department immediately if his symptoms were to worsen or if he were to develop any dizziness, shortness of breath, difficulty breathing, chest pain, blurry vision, loss of vision, nausea, vomiting, abdominal pain, fever, chills, back pain, or any other complaints. Patient verbalized agreement and understanding with this treatment plan and discharge. Differential Diagnosis Differential Diagnoses: The differential diagnosis associated with the presentation includes Allergic reaction Admission/Observation Consideration of admission/observation: Escalation of care including admission/observation considered Patient would have been admitted to the hospital had his work up had any findings where hospital admission was appropriate and his clinical presentation warranted hospital admission. Lab Data [facility] Lab Attestation statement: I reviewed the patient's lab results. My interpretation of these results are in the [facility] Rationale portion of this note. 06/02/24 11:39 06/02/24 11:38 Labs: Lab Results 06/02/24 06/02/24 Range/Units 11:38 11:39 WBC 8.2 (4.8-10.8) X10*3/uL RBC 5.08 (4.60-5.80) X10*6/uL Hgb 15.5 (14.0-18.0) g/dl Hct 43.6 (42.0-52.0) % MCV 85.8 (80.0-98.0) fL MCH 30.5 (27.0-33.0) pg MCHC 35.6 (31.0-36.0) g/dl RDW 11.5 (11.0-16.0) % Plt Count 239 (160-400) X10*3/uL MPV 10.5 (9.4-12.4) fL Immature Gran % (Auto) 0.1 (0.0-0.4) % Neut % (Auto) 49.3 (45-73) % Lymph % (Auto) 37.2 (20-40) % [place] % (Auto) 8.9 (2-11) % Eos % (Auto) 3.9 (0-4) % Baso % (Auto) 0.6 (0-2) % Lymph # (Auto) 3.0 (1.2-4.9) X10*3/uL [place] # (Auto) 0.7 (0.1-1.2) X10*3/uL Eos # (Auto) 0.3 (0.0-0.4) X10*3/uL Baso # (Auto) 0.1 (0.0-0.2) X10*3/uL Abs Immat Gran (auto) 0.01 (0.00-0.03) X10*3/uL Absolute Neuts (auto) 4.0 (2.0-8.3) x10*3/uL Absolute Nucleated RBC 0.000 (0.0-0.012) X10*3/uL Nucleated RBC % (auto) 0.0 (0.0-0.2) /100WBC ESR 2 (0-15) MM/HR Sodium 140 (135-145) mmol/L Potassium 4.4 D (3.3-5.1) mmol/L Chloride 106 (96-108) mmol/L Carbon Dioxide 27 (22-29) mmol/L Anion Gap 11 L (12-20) BUN 16 (9-16) mg/dL Creatinine 0.93 (0.5-1.4) mg/dL Estim Creat Clear Calc 114.4 Estimated GFR > 60 Random Glucose 94 (60-115) mg/dL Calcium 9.7 (8.4-10.2) mg/dL Total Bilirubin 0.3 (0.0-1.0) mg/dL AST 25 (5-37) U/L ALT 43 H (0-40) U/L Alkaline Phosphatase 82 (39-117) U/L C-Reactive Protein < 0.10 (< or = 0.50) mg/dL Total Protein 7.6 (6.5-8.0) g/dL Albumin 4.4 (3.5-5.0) g/dL Critical Care Time Critical Care Time Critical Care Time: Yes Total Critical Care Time: 34 Attestation: I spent 34 minutes of Critical Care Time with this patient. This does not include time spent on separately reported billable procedures. Discharge Plan Discharge Clinical Impression: Allergic reaction Patient Disposition: Home, Self-Care Instructions: General Allergic Reaction (ED) Additional Instructions: Follow up with your primary care provider and an black oxide operator. Return to the emergency department immediately if your symptoms worsen or if you develop any numbness, tingling, dizziness, shortness of breath, difficulty breathing, chest pain, blurry vision, loss of vision, nausea, vomiting, abdominal pain, fever, chills, back pain, or any other complaints. Please see the information below about our Patient Portal. If you are not yet enrolled in the [facility] Patient Portal, you will receive an enrollment email invitation following your visit to any [facility] setting. You may also self-enroll in the Patient Portal by visiting our website: [email or web address] The following information is required to access the Patient Portal: - Your [facility] Medical Record Number - Your personal home email address (must match what is in your electronic medical record, Registration staff can assist with this) - Name - Date of Capabilities of the Patient Portal: - Message some providers - View upcoming appointments - Access your health summary, medical history, and visit history - View current conditions and allergies - View procedure and lab results - View your medications, including guidelines, side effects, and precautions - Complete pre-appointment questionnaires requested by your provider - Ready summary reports of your office visits and procedures To access the Patient Portal Mobile [employer], follow these directions: - Search [employer] in the Olegario Store or Google Play Store - Download the Olegario - Search for [facility] - Enter your login/password Prescriptions: New prednisone 20 mg tablet 20 mg PO DAILY 7 Days Qty: 7 0RF epinephrine 0.3 mg/0.3 mL auto-injector 0.3 mg IM Q10M PRN (Reason: anaphylaxis) Qty: 2 0RF Rx Instructions: for 2 doses No Action benzonatate 200 mg capsule 200 mg PO TID PRN (Reason: cough) Qty: 20 0RF prednisone 20 mg tablet 40 mg PO DAILY Qty: 10 0RF cefuroxime axetil 500 mg tablet 500 mg PO BID 5 Days Qty: 10 0RF Referrals: Dilan Ortiz MD [Physician] - (Call to establish and follow up with an black oxide operator. ) Prateek Mcdonald DO [Physician] - (Call to establish and follow up with an black oxide operator. ) Ann-Marie Maldonado MD [Primary Care Provider] - Stand Alone Forms: Work/School Release Interventions: ED Discharge Assessment Last Done: 06/02/24 13:49 Discharge Date/Time: 06/02/24 13:49 Print Language: French
[2024-06-02 11:41] LABS: MANUAL DIFF FLAG NO
[2024-06-02 11:42] LABS: Basophils Absolute Auto 0.1 X10*3/uL (0.0-0.2); Basophils Percent Auto 0.6 % (0-2); Eosinophils Absolute Auto 0.3 X10*3/uL (0.0-0.4); Eosinophils Percent Auto 3.9 % (0-4); Hematocrit 43.6 % (42.0-52.0); Hemoglobin 15.5 g/dl (14.0-18.0); Imm Gran Abs Auto 0.01 X10*3/uL (0.00-0.03); Imm Gran Pct Auto 0.1 % (0.0-0.4); Lymphocytes Percent Auto 37.2 % (20-40); Mean Corpuscular HGB Conc 35.6 g/dl (31.0-36.0); Mean Corpuscular Hemoglobin 30.5 pg (27.0-33.0); Mean Corpuscular Volume 85.8 fL (80.0-98.0); Mean Platelet Volume 10.5 fL (9.4-12.4); Monocytes Absolute Auto 0.7 X10*3/uL (0.1-1.2); Monocytes Percent Auto 8.9 % (2-11); Neutrophils Percent Auto 49.3 % (45-73); Platelet Count 239 X10*3/uL (160-400); Red Blood Count 5.08 X10*6/uL (4.60-5.80); Red Cell Distribution Width 11.5 % (11.0-16.0); White Blood Count 8.2 X10*3/uL (4.8-10.8)
[2024-06-02] MEDS: methylPREDNISolone Sod Succ 125 MG/2 ML VIAL 60 MG IVPUSH (11:43)
[2024-06-02] MEDS: Famotidine/PF 20 MG/2 ML VIAL IVPUSH (11:43)
[2024-06-02 12:01] LABS: Alanine Aminotransferase 43 U/L (0-40); Albumin Level 4.4 g/dL (3.5-5.0); Alkaline Phosphatase 82 U/L (39-117); Anion Gap 11 (12-20); Aspartate Amino Transferase 25 U/L (5-37); Bilirubin Total 0.3 mg/dL (0.0-1.0); Blood Urea Nitrogen 16 mg/dL (9-16); C Reactive Protein < 0.10 mg/dL (< or = 0.50); Calcium 9.7 mg/dL (8.4-10.2); Carbon Dioxide 27 mmol/L (22-29); Chloride 106 mmol/L (96-108); Creatinine Clr Calc Pharmacy 114.4; Estimated Glomerular Filt Rate > 60; Glucose Random 94 mg/dL (60-115); Potassium 4.4 mmol/L (3.3-5.1); Sodium 140 mmol/L (135-145); Total Protein 7.6 g/dL (6.5-8.0)
[2024-06-02 12:46] LABS: Erythrocyte Sedimentation Rate 2 MM/HR (0-15)
[2024-06-02 13:10] VITALS: BP 96/53; PULSE 65; RESP 14; TEMP 36.5; O2SAT 97
--- OUTSIDE RECORDS SUMMARY | 2024-06-02 13:44 | XMS_ITS | Encounter Summary ---
Author Organization [employer] Address [address] [facility] [address] [place] [address] Care Team Providers Care Insulation Packer Name Role Phone Ann-Marie Maldonado MD Primary Care Provider [phone] Encounter Details Date Type Department Care Team (Late st Contact Info) Description 06/02/2024 Orders Only GENERIC EXTERNAL DATA DEPARTMENT Provider, Generic External Data Social History Tobacco Use Types Packs/Day Years [...] on file documented as of this encounter Procedures Procedure Name Priority Date/Time Associated Diagnosis Comments CBC WITH AUTO DIFFERENTIAL Routine 06/02/2024 11:39 AM EST SED RATE BY MODIFIED WESTERGREN Routine 06/02/2024 11:38 AM EST C-REACTIVE PROTEIN Routine 06/02/2024 11 :38 AM EST COMPREHENSIVE METABOLIC PANEL Routine 06/02/2024 11:38 AM EST documented in this encounter Results * CBC auto differential (06/02/2024 11:39 AM EST) White Blood Count 8.2 4.8 - 10.8 X10*3/uL [facility] Red Blood Count 5.08 4.60 - 5.80 X10*6/uL [facility] Hemoglobin 15.5 14.0 - 18.0 g/dl [facility] Hematocrit 43.6 42.0 - 52.0 % [facility] Mean Corpuscular Volume 85.8 80.0 - 98.0 fL [facility] Mean Corpuscular Hemoglobin 30.5 27.0 - 33.0 pg [facility] Mean Corpuscular HGB Conc 35.6 31.0 - 36.0 g/dl [facility] Red Cell Distribution Width 11.5 11.0 - 16.0 % [facility] Platelet Count 239 160 - 400 X10*3/uL [facility] Mean Platelet Volume 10.5 9.4 - 12.4 fL [facility] Neutrophils Percent Auto 49.3 45 - 73 % [facility] Imm Gran Pct Auto 0.1 0.0 - 0.4 % [facility] Lymphocytes Percent Auto 37.2 20 - 40 % [facility] Monocytes Percent Auto 8.9 2 - 11 % [facility] Eosinophils Percent Auto 3.9 0 - 4 % [facility] Basophils Percent Auto 0.6 0 - 2 % [facility] NRBC Pct Auto 0.0 0.0 - 0.2 /100WBC [facility] Neutrophils Absolute Auto 4.0 2.0 - 8.3 x10*3/uL [facility] Imm Gran Abs Auto 0.01 0.00 - 0.03 X10*3/uL [facility] Lymphocytes Absolute Auto 3.0 1.2 - 4.9 X10*3/uL [facility] Monocytes Absolute Auto 0.7 0.1 - 1.2 X10*3/uL [facility] Eosinophils Absolute Auto 0.3 0.0 - 0.4 X10*3/uL [facility] Basophils Absolute Auto 0.1 0.0 - 0.2 X10*3/uL [facility] NRBC Abs Auto 0.000 0.0 - 0.012 X10*3/uL [facility] 06/02/2024 11:3 9 AM EST 06/02/2024 11:40 AM EST us Generic External Data Provider LAB BLOOD ORDERAB LES Final Result [facility] [address] [place] [phone] * Sed Rate by Modified Dominique (06/02/2024 11:38 AM EST) Erythrocyte Sedimentation Rate 2 0 - 15 MM/HR [facility] Comment:Patients with polycy themia and many hemoglobin abnormalitiesmay have depressed sed rates whereas patients with anemiamay have elevated sed rates. 06/02/2024 11:3 8 AM EST 06/02/2024 11:40 AM EST us Generic External Data Provider LAB BLOOD ORDERAB LES Final Result Performing Organization Address [facility] Co de Phone Number [facility] [address] [place] [phone] * C-reactive Protein (06/02/2024 11:38 AM EST) C Reactive Protein <0.10 < or = 0.50 mg/dL [facility] 06/02/2024 11:3 8 AM EST 06/02/2024 11:40 AM EST Generic External Data Provider LAB BLOOD ORDERAB LES Final Result Performing Organization Address [facility] de Phone Number [facility] [address] [place] [phone] * (ABNORMAL) Comprehensive Metabolic Panel (06/02/2024 11:38 AM EST) Sodium 140 135 - 145 mmol/L [facility] Potassium 4.4 3.3 - 5.1 mmol/L [facility] Chloride 106 96 - 108 mmol/L [facility] Carbon Dioxide 27 22 - 29 mmol/L [facility] Anion Gap 11(L) 12 - 20 [facility] Urea Nitrogen (BUN) 16 9 - 16 mg/dL [facility] Creatinine, Serum 0.93 0.5 - 1.4 mg/dL [facility] Creatinine Clr Calc Pharmacy 114.4 [facility] Comment:eGFR (calculated fro m the MDRD study equation) and eCrCl(calculated from the Cockcroft-Gault equation) are based ondifferent parameters and may not yield comparable results.If eCrCl result is absurd, please check patient'sheight/weight. Estimated Glomerular Filt Rate >60 [facility] Comment:Chronic Kidney Disea se: Estimated GFR < 60 mL/min/[id number] Kidney Disease: Estimated GFR < 15 mL/min/1.73m2 Glucose 94 60 - 115 mg/dL [facility] Calcium 9.7 8.4 - 10.2 mg/dL [facility] Bilirubin, Total 0.3 0.0 - 1.0 mg/dL [facility] Aspartate Amino Transferase 25 5 - 37 U/L [facility] Alanine Aminotransferase 43(H) 0 - 40 U/L [facility] Total Protein 7.6 6.5 - 8.0 g/dL [facility] Albumin Level 4.4 3.5 - 5.0 g/dL [facility] Alkaline Phosphatase 82 39 - 117 U/L [facility] 06/02/2024 11:3 8 AM EST 06/02/2024 11:40 AM EST us Generic External Data Provider LAB BLOOD ORDERAB LES Final Result Performing Organization Address City/State/[facility] Co de Phone Number [facility] [address] [place] [phone] documented in this encounter Visit Diagnoses Not on filedocumented in this encounter Additional Health Concerns Assessment Noted Time PHQ-9 Depression Total Score: 6 01/12/20 24 11:06 AM EDT documented as of this encounter Care Teams Insulation Packer Relationship Specialty Start Date End Date Ann-Marie Maldonado MD [address] [place] [phone] PCP - General Family Medicine 05/07/22 documented as of this encounter
--- OUTSIDE RECORDS SUMMARY | 2024-06-02 13:44 | XMS_ITS | Encounter Summary ---
Author Organization [employer] Address [address] [facility] [address] [place] [address] Care Team Providers Care Rn Homecare Name Role Phone Ann-Marie Maldonado MD Primary Care Provider [phone] Reason for Visit * Reason Onset Date Comments caleb nava 05/04/2024 Encounter Details Date Type Department Care Team ([facility] st Contact Info) Description 05/04/2024 Telephone [facility] MEDICINE [address] [place] [address] Sujatha Talbot MA [email or web address] [email or web address] Social History Tobacco Use Types Packs/Day Years [...] AM EDT documented as of this encounter Miscellaneous Notes * Telephone Encounter - Sujatha Talbot MA - 05/04/2024 11:23 AM EST ..DME for nebulizer signed and faxed to [facility] . [facility]. If patient calls to check status on above, please advise them to contact [facility] at [phone]. documented in this encounter Plan of Treatment Not on file documented as of this encounter Visit Diagnoses Not on filedocumented in this encounter Additional Health Concerns Assessment Noted Time PHQ-9 Depression Total Score: 6 01/12/20 24 11:06 AM EDT documented as of this encounter Care Teams Rn Homecare Relationship Specialty Start Date End Date Ann-Marie Maldonado MD [address] [place] [phone] PCP - General Family Medicine 05/07/22 documented as of this encounter
--- OUTSIDE RECORDS SUMMARY | 2024-06-02 13:44 | XMS_ITS | Clinical Summary ---
Author Organization [facility] Address [address] [place] [address] Care Team Providers Care Final [employer]isher [employer] Name Role Phone Ann-Marie Maldonado MD Primary Care Provider [phone] Allergies Active Allergy Reactions Criticality Noted Date Comments Shellfish Allergy High 05/07/2022 Medications albuterol 108 (90 Base) MCG/ACT inhalerIndicatio ns:Mild intermittent asthma without complication Inhale 2 puffs every 4 (four) hours if needed for wheezing or shortness of breath. Maximum 8 puffs per day 18 g 3 5 026 Active cetirizine (ZyrTEC) 10 MG tablet Take 1 tablet (10 mg) by mouth Once per day. 90 tablet 3 5 Active EPINEPHrine (Epipen) 0.3 MG/0.3ML injection syringe Inject 0.3 mL (0.3 mg) as directed 1 (one) time for 1 dose. use as directed for allergic reaction and then call 911 2 each 1 5 Active fluticasone (Flonase) 50 MCG/ACT nasal sprayIndications :Allergic rhinitis, unspecified seasonality, unspecified trigger Administer 1-2 sprays into each nostril Once per day. Shake gently. Before first use, prime pump. After use, clean tip and replace cap. 16 g 2 5 026 Active albuterol (2.5 MG/3ML) 0.083% nebulizer solution Take 3 mL (2.5 mg) by nebulization every 4 (four) hours if needed for wheezing or shortness of breath (Maximum 4 treatments per day). 75 mL 1 5 026 Active Active Problems Problem Noted Date Diagnosed Date Dyspnea 04/30/2024 Assessment & Plan (04/30/2024 4:16 PM EST): - likely asthma - evaluate for PFT - EKG normal in Apr and Feb 2023 Seafood allergy 04/30/2024 Assessment & Plan (04/30/2024 4:18 PM EST): - avoidance - carry Epinephrine pen Elevated blood pressure read ing without diagnosis of hypertension 09/07/2023 Assessment & Plan (04/30/2024 4:17 PM EST): -transient, normal today, likely situational at last visit -continue lifestyle modifications Assessment & Plan (01/12/2024 11:02 AM EDT): [...] needed -Rx Flonase, as needed -Refer to [facility] since this condition is Chronic Asthma 05/07/2022 Assessment & Plan (04/30/2024 4:15 PM EST): - Stopped smoking / vaping Day #18 of abstinence - ED visit for asthma exacerbation, treated with prednisone and antibiotic in July 2023 - Continue albuterol inhaler - Ordered PFT [...] - PHQ9 = 15 - Seen by [facility] clinician today; pt will be connected with [...] on some days 05/07/2022 Assessment & Plan (04/30/2024 4:19 PM EST): - Congratulated on his effort to stop smoking and vaping Assessment & Plan (01/12/2024 11:02 AM EDT): [...] Encounters Date Type Department Care Team Description 06/02/2024 Orders Only GENERIC EXTERNAL DATA DEPARTMENT Provider, Generic External Data 05/04/2024 Telephone [facility] [address] [place] [phone] Sujatha Talbot MA dme neuulizar 05/02/2024 10:00 AM EST Clinical Support [facility] [address] [place] [address] Vivian Pop LPN Encounter for immunization (Primary Dx) 05/02/2024 Travel 04/29/2024 Telephone [facility] [address] [place] [address] Shena Blum, RN Results 04/25/2024 10:30 AM EST Office Visit [facility] [address] [facility] [place] [phone] Ann-Marie Maldonado MD Routine general medical examination at a health care facility (Primary Dx); Mild intermittent asthma without complication; Allergic rhinitis, unspecified seasonality, unspecified trigger; Immunity status testing; Routine screening for STI (sexually transmitted infection); Screening for lipid disorders; Dyspnea, unspecified type; Elevated blood pressure reading without diagnosis of hypertension; Seafood allergy; Current vaping on some days; Poor vision 04/25/2024 Travel 04/14/2024 Patient Outreach [facility] [place] [address] Ann-Marie Maldonado MD Pre-visit Planning (SDOH Screening negative and Tobacco screening negative) from Last 3 Months Immunizations Name Administration Dates Next Due Hep A, Adult 05/02/2024 Hep B, adult 05/02/2024 Pneumococcal Conjugate PCV 20 09/07/2023 Tdap 09/07/2023 [...] Health Maintenance Due Date Last Done Comments Lipid Panel 1996 Family Planning (PISQ) 07/10/2011 COVID-19 Vaccine ( - 2023-2 5 season) 2023 Influenza Vaccine (#1) 2023 Hepatitis B Vaccines (2 of 3 - 19+ 3-dose series) 05/30/2024 05/02/2024 Depression Screening 01/11/2025 01/12/2024, 01/12/2024 Tobacco Screening 01/11/2025 01/12/2024 SDOH Screening 04/14/2025 04/14/2024 Alcohol/Substance Use Screening 04/25/2025 04/25/2024 DTaP/Tdap/Td Vaccines (2 - T d or Tdap) 09/06/2033 09/07/2023 Zoster Vaccines (1 of 2) 2046 RSV Patients and Patients Aged 60 years or older (1 - 1-dose 75+ series) 07/10/2071 Pneumococcal Vaccine: Pediatrics (0 to 5 Years) and At-Risk Patients (6 to 49) Years) Completed 09/07/2023 HIV Screening Completed 04/25/2024 Hepatitis C Screening Completed 04/25/2024 Hepatitis A Vaccines Aged Out 05/02/2024 No long er eligible based on patient's age to complete this topic HIB Vaccines Aged Out No longer eligi [...] on patient's age to complete this topic Procedures Procedure Name Priority Date/Time Associated Diagnosis Comments CBC WITH AUTO DIFFERENTIAL Routine 06/02/2024 11:39 AM EST SED RATE BY MODIFIED WESTERGREN Routine 06/02/2024 11:38 AM EST C-REACTIVE PROTEIN Routine 06/02/2024 11 :38 AM EST COMPREHENSIVE METABOLIC PANEL Routine 06/02/2024 11:38 AM EST HEPATITIS A ANTIBODY, TOTAL Routine 04/25/2024 11:20 AM EST Immunity status testing HEPATITIS B SURFACE ANTIGEN, EIA Routine 04/25/2024 11:20 AM EST Routine screening for STI (sexually transmitted infection) HIV 1/2 ANTIGEN/ANTIBODY, FOURTH GENERATION W/RFL Routine 04/25/2024 11:20 AM EST Routine screening for STI (sexually transmitted infection) HEPATITIS B CORE AB TOTAL Routine 04/25/2024 11:20 AM EST Routine screening for STI (sexually transmitted infection) HEPATITIS B SURFACE ANTIBODY, QUALITATIVE Routine 04/25/2024 11:20 AM EST Routine screening for STI (sexually transmitted infection) HEPATITIS C AB W/REFL TO HCV RNA, QN, PCR Routine 04/25/2024 11:20 AM EST Routine screening for STI (sexually transmitted infection) SYPHILIS SCREEN Routine 04/25/2024 11:20 AM EST Routine screening for STI (sexually transmitted infection) from Last 3 Months Results * CBC auto differential (06/02/2024 11:39 AM EST) White Blood Count 8.2 4.8 - 10.8 X10*3/uL [facility] Red Blood Count 5.08 4.60 - 5.80 X10*6/uL [facility] Hemoglobin 15.5 14.0 - 18.0 g/dl [facility] Hematocrit 43.6 42.0 - 52.0 % [facility] Mean Corpuscular Volume 85.8 80.0 - 98.0 fL [facility] Mean Corpuscular Hemoglobin 30.5 27.0 - 33.0 pg [facility] Mean Corpuscular HGB Conc 35.6 31.0 - 36.0 g/dl [facility] Red Cell Distribution Width 11.5 11.0 - 16.0 % [facility] Platelet Count 239 160 - 400 X10*3/uL [facility] Mean Platelet Volume 10.5 9.4 - 12.4 fL [facility] Neutrophils Percent Auto 49.3 45 - 73 % [facility] Imm Gran Pct Auto 0.1 0.0 - 0.4 % [facility] Lymphocytes Percent Auto 37.2 20 - 40 % [facility] Monocytes Percent Auto 8.9 2 - 11 % [facility] Eosinophils Percent Auto 3.9 0 - 4 % [facility] Basophils Percent Auto 0.6 0 - 2 % [facility] NRBC Pct Auto 0.0 0.0 - 0.2 /100WBC [facility] Neutrophils Absolute Auto 4.0 2.0 - 8.3 x10*3/uL [facility] Imm Gran Abs Auto 0.01 0.00 - 0.03 X10*3/uL [facility] Lymphocytes Absolute Auto 3.0 1.2 - 4.9 X10*3/uL [facility] Monocytes Absolute Auto 0.7 0.1 - 1.2 X10*3/uL [facility] Eosinophils Absolute Auto 0.3 0.0 - 0.4 X10*3/uL [facility] Basophils Absolute Auto 0.1 0.0 - 0.2 X10*3/uL [facility] NRBC Abs Auto 0.000 0.0 - 0.012 X10*3/uL [facility] 06/02/2024 11:3 9 AM EST 06/02/2024 11:40 AM EST us Generic External Data Provider LAB BLOOD ORDERAB LES Final Result Performing Organization Address City/[facility]/ZIP Co de Phone Number [facility] [address] [place] [phone] * Sed Rate by Modified Dominique (06/02/2024 11:38 AM EST) Erythrocyte Sedimentation Rate 2 0 - 15 MM/HR [facility] Comment:Patients with polycy themia and many hemoglobin abnormalitiesmay have depressed sed rates whereas patients with anemiamay have elevated sed rates. 06/02/2024 11:3 8 AM EST 06/02/2024 11:40 AM EST us Generic External Data Provider LAB BLOOD ORDERAB LES Final Result Performing Organization Address [facility]/ZIP Co de Phone Number [facility] [address] [place] [phone] * C-reactive Protein (06/02/2024 11:38 AM EST) C Reactive Protein <0.10 < or = 0.50 mg/dL [facility] 06/02/2024 11:3 8 AM EST 06/02/2024 11:40 AM EST us Generic External Data Provider LAB BLOOD ORDERAB LES Final Result [facility] [address] [place] [phone] * (ABNORMAL) Comprehensive Metabolic Panel (06/02/2024 11:38 AM EST) Sodium 140 135 - 145 mmol/L [facility] Potassium 4.4 3.3 - 5.1 mmol/L [facility] Chloride 106 96 - 108 mmol/L [facility] Carbon Dioxide 27 22 - 29 mmol/L [facility] Anion Gap 11(L) 12 - 20 [facility] Urea Nitrogen (BUN) 16 9 - 16 mg/dL [facility] Creatinine, Serum 0.93 0.5 - 1.4 mg/dL [facility] Creatinine Clr Calc Pharmacy 114.4 [facility] Comment:eGFR (calculated fro m the MDRD study equation) and eCrCl(calculated from the Cockcroft-Gault equation) are based ondifferent parameters and may not yield comparable results.If eCrCl result is absurd, please check patient'sheight/weight. Estimated Glomerular Filt Rate >60 [facility] Comment:Chronic Kidney Disea se: Estimated GFR < 60 mL/min/[id number] Kidney Disease: Estimated GFR < 15 mL/min/1.73m2 Glucose 94 60 - 115 mg/dL [facility] Calcium 9.7 8.4 - 10.2 mg/dL [facility] Bilirubin, Total 0.3 0.0 - 1.0 mg/dL [facility] Aspartate Amino Transferase 25 5 - 37 U/L [facility] Alanine Aminotransferase 43(H) 0 - 40 U/L [facility] Total Protein 7.6 6.5 - 8.0 g/dL [facility] Albumin Level 4.4 3.5 - 5.0 g/dL [facility] Alkaline Phosphatase 82 39 - 117 U/L [facility] 06/02/2024 11:3 8 AM EST 06/02/2024 11:40 AM EST us Generic External Data Provider LAB BLOOD ORDERAB LES Final Result Performing Organization Address [facility] Co de Phone Number [facility] [address] [place] [phone] * Syphilis Screen (04/25/2024 11:20 AM EST) Syphilis Screen Nonreactive Nonreactive [facility] Blood 04/25/2024 11:2 0 AM EST 04/25/2024 1:28 PM EST us Ann-Marie Maldonado MD LAB BLOOD ORDERABLES Final Resul t Performing Organization Address [facility] de Phone Number [facility] [address] [place] [phone] * Hepatitis C Antibody with Reflex to HCV, RNA, Quantitative, Real-Time PCR (04/25/2024 11:20 AM EST) Hepatitis C Antibody Nonreactive Nonreactive [facility] Comment:Antibodies to HCV no t detected; does not exclude early acuteHCV infection. Blood Venous blood specimen / Unknown 04/25/2024 11:20 AM EST 04/25/2024 1:28 PM EST us Ann-Marie Maldonado MD LAB BLOOD ORDERABLES Final Resul t Performing Organization Address [facility] Co de Phone Number [facility] [address] [place] [phone] * Hepatitis A Antibody, Total (04/25/2024 11:20 AM EST) Hepatitis A Antibody IgG Nonreactive Nonreactive [facility] Blood Venous blood specimen / Unknown 04/25/2024 11:20 AM EST 04/25/2024 1:28 PM EST us Ann-Marie Maldonado MD LAB BLOOD ORDERABLES Final Resul t Performing Organization Address [facility] Co de Phone Number [facility] [address] [place] [phone] * Hepatitis B surface antigen, EIA (04/25/2024 11:20 AM EST) Hepatitis B Surface Ag Negative Negative [facility] Blood Venous blood specimen / Unknown 04/25/2024 11:20 AM EST 04/25/2024 1:28 PM EST us Ann-Marie Maldonado MD LAB BLOOD ORDERABLES Final Resul t Performing Organization Address [facility] Co de Phone Number [facility] [address] [place] [phone] * Hepatitis B Core Antibody, Total (04/25/2024 11:20 AM EST) Hepatitis B Core Antibody Nonreactive Nonreactive [facility] Blood Venous blood specimen / Unknown 04/25/2024 11:20 AM EST 04/25/2024 1:28 PM EST us Ann-Marie Maldonado MD LAB BLOOD ORDERABLES Final Resul t Performing Organization Address [facility] Co de Phone Number [facility] [address] [place] [phone] * HIV-1/2 Antigen and Antibodies, Fourth Generation, with Reflexes (04/25/2024 11:20 AM EST) HIV AB/AG Nonreactive Nonreactive [facility] Comment:HIV-1 p24 Ag and/or HIV-1/HIV-2 Ab not detected.A test result that is nonreactive does not exclude thepossibility of exposure to or infection with HIV-1 and/orHIV-2. Nonreactive results in this assay for individualswith prior exposure to HIV-1 and/or HIV-2 may be due toantigen and antibody levels that are below the limit ofdetection of this assay.The [employer] HIV Ag/Ab Combo assay result andsupplemental assay results should be interpreted inconjunction with the patient's clinical presentation,history and other laboratory results. If the results areinconsistent with clinical evidence, additional testing issuggested to confirm the result. Blood Venous blood specimen / Unknown 04/25/2024 11:20 AM EST 04/25/2024 1:28 PM EST Ann-Marie Maldonado MD LAB BLOOD ORDERABLES Final Resul t Performing Organization Address [facility] Co de Phone Number [facility] [address] [place] [phone] * Hepatitis B Surface Antibody, Qualitative (04/25/2024 11:20 AM EST) ~Hepatitis B Surface Antibody NONREACTIVE Nonreactive [facility] Comment:Nonreactive: < 8.00 mIU/mL Blood Venous blood specimen / Unknown 04/25/2024 11:20 AM EST 04/25/2024 1:28 PM EST Ann-Marie Maldonado MD LAB BLOOD ORDERABLES Final Resul t Performing Organization Address [facility] Co de Phone Number [facility] [address] [place] [phone] from Last 3 Months Insurance [id number] PPO Care Teams Final [employer] Dies Relationship Specialty Start Date End Date Ann-Marie Maldonado MD [address] [place] [phone] PCP - General Family Medicine 05/07/22
[2024-06-02 13:49] VITALS: BP 100/57; PULSE 62; RESP 16; TEMP 36.7; O2SAT 96
== END 2024-06-02 13:49 | disposition home or self-care (01) ==
PROVIDERS: Physician Assistant Medical; Emergency Provider Emergency Medicine; PCP Family Medicine
DX: L50.0 Allergic urticaria (principal); Z79.899 Other long term (current) drug therapy
CPT/HCPCS: 36415; 80053; 85025; 85652; 86140; 96374; 96375; 99284; J2919

== ENCOUNTER 2024-06-08 14:53 | Outpatient (REF) | payer OTHER, SELFPAY ==
--- NOTE | 2024-06-08 14:55 | PFT_ITS ---
Flows: FEV1: 88 % of predicted at 3.52 L FVC: 97 % of predicted at 4.63 L FEV1/FVC: 76 % Bronchodilator response: Present in small to medium airways only Volumes: Total lung capacity: 94 % of predicted at 5.80 L Residual volume: 94 % of predicted at 1.23 L Slow vital capacity: 94 % of predicted at 4.57 L Expiratory reserve volume: 107 % of predicted at 1.53 L Diffusion capacity: Normal Impression: No obstructive or restrictive ventilatory defect. Bronchodilator response is present in small to medium airways only. MTDD
[2024-06-08 15:32] VITALS: PULSE 71
--- OUTSIDE RECORDS SUMMARY | 2024-06-08 17:31 | XMS_ITS | Clinical Summary ---
Author Organization [employer] [facility] Address [address] [facility] 7[address] [place] [address] Care Team Providers Care Telesales Specialist Name Role Phone Ann-Marie Maldonado MD Primary Care Provider [phone] Allergies Active Allergy Reactions Criticality Noted Date [...] - PHQ9 = 15 - Seen by [facility] clinician today; pt will be connected [...] Encounters Date Type Department Care Team Description 06/04/[address] [address] Kirsten Machado, CONTACT [employer] Follow-up 06/02/2024 Orders Only GENERIC EXTERNAL DATA DEPARTMENT Provider, Generic External Data 05/04/2024 Telephone [facility] [address] [facility] [place] [address] Sujatha Talbot MA dme neuulizar 05/02/2024 10:00 AM EST Clinical Support [address] [place] [address] Vivian Ppo LPN Encounter for immunization (Primary Dx) 05/02/2024 Travel 04/29/2024 Telephone [facility]IC[facility] [address] [place] [address] Shena Blum, RN Results 04/25/2024 10:30 AM EST Office Visit [address] [address] Ann-Marie Maldonado MD Routine general medical examination [...] Poor vision 04/25/2024 Travel 04/14/2024 Patient Outreach [address] [address] Ann-Marie Maldonado MD Pre-visit Planning (SDOH Screening [...] Blood Count 8.2 4.8 - 10.8 X10*3/uL [facility] Red Blood Count 5.08 4.60 - 5.80 X10*6/uL [facility] Hemoglobin 15.5 14.0 - 18.0 g/dl [facility] Hematocrit 43.6 42.0 - 52.0 % [facility] Mean Corpuscular Volume 85.8 80.0 - 98.0 fL [facility] Mean Corpuscular Hemoglobin 30.5 27.0 - 33.0 pg [facility] Mean Corpuscular HGB Conc 35.6 31.0 - 36.0 g/dl [facility] Red Cell Distribution Width 11.5 11.0 - 16.0 % [facility] Platelet Count 239 160 - 400 X10*3/uL [facility] Mean Platelet Volume 10.5 9.4 - 12.4 fL [facility] Neutrophils Percent Auto 49.3 45 - 73 % [facility] Imm Gran Pct Auto 0.1 0.0 - 0.4 % [facility] Lymphocytes Percent Auto 37.2 20 - 40 % [facility] Monocytes Percent Auto 8.9 2 - 11 % [facility] Eosinophils Percent Auto 3.9 0 - 4 % [facility] Basophils Percent Auto 0.6 0 - 2 % [facility] NRBC Pct Auto 0.0 0.0 - 0.2 /100WBC [facility] Neutrophils Absolute Auto 4.0 2.0 - 8.3 x10*3/uL [facility] Imm Gran Abs Auto 0.01 0.00 - 0.03 X10*3/uL [facility] Lymphocytes Absolute Auto 3.0 1.2 - 4.9 X10*3/uL [facility] Monocytes Absolute Auto 0.7 0.1 - 1.2 X10*3/uL [facility] Eosinophils Absolute Auto 0.3 0.0 - 0.4 X10*3/uL [facility] Basophils Absolute Auto 0.1 0.0 - 0.2 X10*3/uL [facility] NRBC Abs Auto 0.000 0.0 - 0.012 X10*3/uL [facility] 06/02/2024 11:3 9 AM EST 06/02/2024 11:40 AM EST us Generic External Data Provider LAB BLOOD ORDERAB LES Final Result [facility] [address] [place] [address] [phone] * Sed Rate by Modified Dominique (06/02/2024 11:38 AM EST) Erythrocyte Sedimentation Rate 2 0 - 15 MM/HR [facility] Comment:Patients with polycy themia and many hemoglobin abnormalitiesmay have depressed sed rates whereas patients with anemiamay have elevated sed rates. 06/02/2024 11:3 8 AM EST 06/02/2024 11:40 AM EST us Generic External Data Provider LAB BLOOD ORDERAB LES Final Result Performing Organization Address City/[facility]/ZIP Co de Phone Number [facility] [address] [place] [phone] * C-reactive Protein (06/02/2024 11:38 AM EST) C Reactive Protein <0.10 < or = 0.50 mg/dL [facility] 06/02/2024 11:3 8 AM EST 06/02/2024 11:40 AM EST us Generic External Data Provider LAB BLOOD ORDERAB LES Final Result Performing Organization Address [facility] Co de Phone Number [facility] [address] [place] [phone] * (ABNORMAL) Comprehensive Metabolic Panel (06/02/2024 11:38 AM EST) Pathologist [facility] Sodium 140 135 - 145 mmol/L [facility] Potassium 4.4 3.3 - 5.1 mmol/L [facility] Chloride 106 96 - 108 mmol/L [facility] Carbon Dioxide 27 22 - 29 mmol/L [facility] Anion Gap 11(L) 12 - 20 [facility] Urea Nitrogen (BUN) 16 9 - 16 mg/dL [facility] Creatinine, Serum 0.93 0.5 - 1.4 mg/dL [facility] Creatinine Clr Calc Pharmacy 114.4 [facility] Comment:eGFR (calculated fro m the MDRD study equation) and eCrCl(calculated from the Cockcroft-Gault equation) are based ondifferent parameters and may not yield comparable results.If eCrCl result is absurd, please check patient'sheight/weight. Estimated Glomerular Filt Rate >60 [facility] Comment:Chronic Kidney Disea se: Estimated GFR < 60 mL/min/[id number] Kidney Disease: Estimated GFR < 15 mL/min/1.73m2 Glucose 94 60 - 115 mg/dL [facility] Calcium 9.7 8.4 - 10.2 mg/dL [facility] Bilirubin, Total 0.3 0.0 - 1.0 mg/dL [facility] Aspartate Amino Transferase 25 5 - 37 U/L [facility] Alanine Aminotransferase 43(H) 0 - 40 U/L [facility] Total Protein 7.6 6.5 - 8.0 g/dL [facility] Albumin Level 4.4 3.5 - 5.0 g/dL [facility] Alkaline Phosphatase 82 39 - 117 U/L [facility] 06/02/2024 11:3 8 AM EST 06/02/2024 11:40 AM EST us Generic External Data Provider LAB BLOOD ORDERAB LES Final Result Performing Organization Address [facility] Co de Phone Number [facility] [address] [place] [phone] * Syphilis Screen (04/25/2024 11:20 AM EST) Syphilis Screen Nonreactive Nonreactive [facility] Blood 04/25/2024 11:2 0 AM EST 04/25/2024 1:28 PM EST us Ann-Marie Maldonado MD LAB BLOOD ORDERABLES Final Resul t Performing Organization Address [facility] de Phone Number [facility] [address] [place] [phone] * Hepatitis C Antibody with Reflex to HCV, RNA, Quantitative, Real-Time PCR (04/25/2024 11:20 AM EST) Hepatitis C Antibody Nonreactive Nonreactive [facility] Comment:Antibodies to HCV no t detected; does not exclude early acuteHCV infection. Blood Venous blood specimen / Unknown 04/25/2024 11:20 AM EST 04/25/2024 1:28 PM EST us Ann-Marie Maldonado MD LAB BLOOD ORDERABLES Final Resul t Performing Organization Address City/[facility]/ZIP Co de Phone Number [facility] [address] [place] [phone] * Hepatitis A Antibody, Total (04/25/2024 11:20 AM EST) Hepatitis A Antibody IgG Nonreactive Nonreactive [facility] Blood Venous blood specimen / Unknown 04/25/2024 11:20 AM EST 04/25/2024 1:28 PM EST us Ann-Marie Maldonado MD LAB BLOOD ORDERABLES Final Resul t Performing Organization Address [facility] Co de Phone Number [facility] [address] [place] [phone] * Hepatitis B surface antigen, EIA (04/25/2024 11:20 AM EST) Hepatitis B Surface Ag Negative Negative [facility] Blood Venous blood specimen / Unknown 04/25/2024 11:20 AM EST 04/25/2024 1:28 PM EST us Ann-Marie Maldonado MD LAB BLOOD ORDERABLES Final Resul t Performing Organization Address [facility] Co de Phone Number [facility] [address] [place] [phone] * Hepatitis B Core Antibody, Total (04/25/2024 11:20 AM EST) Hepatitis B Core Antibody Nonreactive Nonreactive [facility] Blood Venous blood specimen / Unknown 04/25/2024 11:20 AM EST 04/25/2024 1:28 PM EST Ann-Marie Maldonado MD LAB BLOOD ORDERABLES Final Resul t Performing Organization Address [facility] Co de Phone Number [facility] [address] [place] [phone] * HIV-1/2 Antigen and Antibodies, Fourth Generation, with Reflexes (04/25/2024 11:20 AM EST) HIV AB/AG Nonreactive Nonreactive [facility] Comment:HIV-1 p24 Ag and/or HIV-1/HIV-2 Ab not detected.A test result that is nonreactive does not exclude thepossibility of exposure to or infection with HIV-1 and/orHIV-2. Nonreactive results in this assay for individualswith prior exposure to HIV-1 and/or HIV-2 may be due toantigen and antibody levels that are below the limit ofdetection of this assay.The [employer] HIV Ag/Ab Combo assay result andsupplemental assay results should be interpreted inconjunction with the patient's clinical presentation,history and other laboratory results. If the results areinconsistent with clinical evidence, additional testing issuggested to confirm the result. Blood Venous blood specimen / Unknown 04/25/2024 11:20 AM EST 04/25/2024 1:28 PM EST us Ann-Marie Maldonado MD LAB BLOOD ORDERABLES Final Resul t Performing Organization Address [facility] Co de Phone Number [facility] [address] [place] [phone] * Hepatitis B Surface Antibody, Qualitative (04/25/2024 11:20 AM EST) ~Hepatitis B Surface Antibody NONREACTIVE Nonreactive [facility] Comment:Nonreactive: < 8.00 mIU/mL Blood Venous blood specimen / Unknown 04/25/2024 11:20 AM EST 04/25/2024 1:28 PM EST us Ann-Marie Maldonado MD LAB BLOOD ORDERABLES Final Resul t Performing Organization Address City[facility] Co de Phone Number [facility] [address] [place] [phone] from Last 3 Months Insurance [employer] PPO Care Teams Telesales Specialist Relationship Specialty Start Date End Date Ann-Marie Maldonado MD [address] [place] [phone] PCP - General Family Medicine 05/07/22
--- OUTSIDE RECORDS SUMMARY | 2024-06-08 17:31 | XMS_ITS | Encounter Summary ---
Author Organization [employer] Address [address] [place] [address] Care Team Providers Care Poundmaster Name Role Phone Ann-Marie Maldonado MD Primary Care Provider [phone] Encounter Details Date Type Department Care Team [...] Blood Count 8.2 4.8 - 10.8 X10*3/uL [facility] Red Blood Count 5.08 4.60 - 5.80 X10*6/uL [facility] Hemoglobin 15.5 14.0 - 18.0 g/dl [facility] Hematocrit 43.6 42.0 - 52.0 % [facility] Mean Corpuscular Volume 85.8 80.0 - 98.0 fL [facility] Mean Corpuscular Hemoglobin 30.5 27.0 - 33.0 pg [facility] Mean Corpuscular HGB Conc 35.6 31.0 - 36.0 g/dl [facility] Red Cell Distribution Width 11.5 11.0 - 16.0 % [facility] Platelet Count 239 160 - 400 X10*3/uL [facility] Mean Platelet Volume 10.5 9.4 - 12.4 fL [facility] Neutrophils Percent Auto 49.3 45 - 73 % [facility] Imm Gran Pct Auto 0.1 0.0 - 0.4 % [facility] Lymphocytes Percent Auto 37.2 20 - 40 % [facility] Monocytes Percent Auto 8.9 2 - 11 % [facility] Eosinophils Percent Auto 3.9 0 - 4 % [facility] Basophils Percent Auto 0.6 0 - 2 % [facility] NRBC Pct Auto 0.0 0.0 - 0.2 /100WBC [facility] Neutrophils Absolute Auto 4.0 2.0 - 8.3 x10*3/uL [facility] Imm Gran Abs Auto 0.01 0.00 - 0.03 X10*3/uL [facility] Lymphocytes Absolute Auto 3.0 1.2 - 4.9 X10*3/uL [facility] Monocytes Absolute Auto 0.7 0.1 - 1.2 X10*3/uL [facility] Eosinophils Absolute Auto 0.3 0.0 - 0.4 X10*3/uL [facility] Basophils Absolute Auto 0.1 0.0 - 0.2 X10*3/uL [facility] NRBC Abs Auto 0.000 0.0 - 0.012 X10*3/uL [facility] 06/02/2024 11:3 9 AM EST 06/02/2024 11:40 AM EST us Generic External Data Provider LAB BLOOD ORDERAB LES Final Result [facility] [address] [place] [phone] * Sed Rate by Modified Dominique (06/02/2024 11:38 AM EST) Erythrocyte Sedimentation Rate 2 0 - 15 MM/HR [facility] Comment:Patients with polycy themia and many hemoglobin abnormalitiesmay have depressed sed rates whereas patients with anemiamay have elevated sed rates. 06/02/2024 11:3 8 AM EST 06/02/2024 11:40 AM EST us Generic External Data Provider LAB BLOOD ORDERAB LES Final Result Performing Organization Address [facility] Co de Phone Number [facility] [address] [place] [phone] * C-reactive Protein (06/02/2024 11:38 AM EST) C Reactive Protein <0.10 < or = 0.50 mg/dL [facility] 06/02/2024 11:3 8 AM EST 06/02/2024 11:40 AM EST Generic External Data Provider LAB BLOOD ORDERAB LES Final Result Performing Organization Address [facility] de Phone Number [facility] [address] [place] [phone] * (ABNORMAL) Comprehensive Metabolic Panel (06/02/2024 11:38 AM EST) Sodium 140 135 - 145 mmol/L [facility] Potassium 4.4 3.3 - 5.1 mmol/L [facility] Chloride 106 96 - 108 mmol/L [facility] Carbon Dioxide 27 22 - 29 mmol/L [facility] Anion Gap 11(L) 12 - 20 [facility] Urea Nitrogen (BUN) 16 9 - 16 mg/dL [facility] Creatinine, Serum 0.93 0.5 - 1.4 mg/dL [facility] Creatinine Clr Calc Pharmacy 114.4 [facility] Comment:eGFR (calculated fro m the MDRD study equation) and eCrCl(calculated from the Cockcroft-Gault equation) are based ondifferent parameters and may not yield comparable results.If eCrCl result is absurd, please check patient'sheight/weight. Estimated Glomerular Filt Rate >60 [facility] Comment:Chronic Kidney Disea se: Estimated GFR < 60 mL/min/[id number] Kidney Disease: Estimated GFR < 15 mL/min/1.73m2 Glucose 94 60 - 115 mg/dL [facility] Calcium 9.7 8.4 - 10.2 mg/dL [facility] Bilirubin, Total 0.3 0.0 - 1.0 mg/dL [facility] Aspartate Amino Transferase 25 5 - 37 U/L [facility] Alanine Aminotransferase 43(H) 0 - 40 U/L [facility] Total Protein 7.6 6.5 - 8.0 g/dL [facility] Albumin Level 4.4 3.5 - 5.0 g/dL [facility] Alkaline Phosphatase 82 39 - 117 U/L [facility] 06/02/2024 11:3 8 AM EST 06/02/2024 11:40 AM EST us Generic External Data Provider LAB BLOOD ORDERAB LES Final Result Performing Organization Address City/State/[facility] Co de Phone Number [facility] [address] [place] [phone] documented in this encounter Visit Diagnoses Not on filedocumented in this encounter Additional Health Concerns Assessment Noted Time PHQ-9 Depression Total Score: 6 01/12/20 24 11:06 AM EDT documented as of this encounter Care Teams Poundmaster Relationship Specialty Start Date End Date Ann-Marie Maldonado MD [address] [place] [phone] PCP - General Family Medicine 05/07/22 documented as of this encounter
--- OUTSIDE RECORDS SUMMARY | 2024-06-08 17:31 | XMS_ITS | Encounter Summary ---
Author Organization [employer] Address [address] [facility] [address] [place] [address] Care Team Providers Care Signal Inspector Name Role Phone Ann-Marie Maldonado MD Primary Care Provider [phone] Reason for Visit * Reason Onset Date Comments ER Follow-up 06/04/2024 Encounter Details Date Type Department Care Team ([facility] st Contact Info) Description 06/04/2024 Telephone [facility] MEDICINE [address] [place], [place] [phone] Kirsten Machado, RN [address] [place] [address] ER Follow-up Social History Tobacco Use Types Packs/Day Years [...] encounter Miscellaneous Notes * Telephone Encounter - Kirsten Machado RN - 06/04/2024 11:10 AM EST PFT scheduled for 06/08/24 @3PM. Telephone call placed to pt. No answer. Left v/m with appt reminder for PFT and advised he call back if he needs anything or has any concerns. Patient was seen in ED for allergic reaction. Patient still has not done PFT. Please call him for status check and remind him to do his PFT. Thank you. documented in this encounter Plan of Treatment Not on file documented as of this encounter Visit Diagnoses Not on filedocumented in this encounter Additional Health Concerns Assessment Noted Time PHQ-9 Depression Total Score: 6 01/12/20 24 11:06 AM EDT documented as of this encounter Care Teams Signal Inspector Relationship Specialty Start Date End Date Ann-Marie Maldonado MD [address] [place] [address] PCP - General Family Medicine 05/07/22 documented as of this encounter
== END 2024-06-08 14:54 | disposition home or self-care (01) ==
LOC: HO.RESP 14:53
PROVIDERS: PCP Family Medicine; Visit Provider Family Medicine
DX: J45.20 Mild intermittent asthma, uncomplicated (principal)
CPT/HCPCS: 94010; 94640; 94727; 94729

== ENCOUNTER → 2024-06-08 14:55 | Outpatient (BNV) | payer OTHER, SELFPAY | PROVIDERS: PCP Family Medicine; Visit Provider Internal Medicine Pulmonary Disease | DX: J45.20 Mild intermittent asthma, uncomplicated (principal) | CPT/HCPCS: 94060; 94727; 94729 ==

== ENCOUNTER 2024-08-16 09:45 | Outpatient (REF) | payer OTHER, SELFPAY ==
--- NOTE | ~2024-08-16 | XR_ITS ---
EXAMINATION: XR WRIST, LEFT CLINICAL INFORMATION: left forearm and wrist pain. Injured in 2016. COMPARISON: None available. TECHNIQUE: PA, lateral, and oblique views of the left wrist. Scaphoid projection. FINDINGS: The carpal bones are intact with normal alignment. The distal radius and ulna are intact. The metacarpals are intact. No lytic or blastic lesions. Scaphoid projection demonstrates no gross cortical irregularity. XR/XR wrist LT min 3V IMPRESSION: No acute fracture or dislocation. Electronically signed by: Gio Bond MD 08/16/2024 11:10 AM EDT
--- NOTE | ~2024-08-16 | XR_ITS ---
EXAMINATION: XR FOREARM, LEFT CLINICAL INFORMATION: PAIN COMPARISON: None available. TECHNIQUE: AP and lateral views of the left forearm were obtained. FINDINGS: No acute cortical disruption. No lytic or blastic lesion. No metallic or radiopaque foreign body. No subcutaneous emphysema. XR/XR forearm LT 2V IMPRESSION: Normal x-ray left forearm. Electronically signed by: Gio Bond MD 08/16/2024 11:11 AM EDT
--- OUTSIDE RECORDS SUMMARY | 2024-08-16 10:46 | XMS_ITS | Clinical Summary ---
Author Organization [employer] Address [address] [facility] 7t [place] [address] Care Team Providers Care Casting Room Operator Name Role Phone Ann-Marie Maldonado MD Primary Care Provider [phone] Allergies Active Allergy Reactions Criticality Noted Date Comments Shellfish Allergy High 05/07/2022 Medications albuterol 108 (90 Base) MCG/ACT inhalerIndicati ons:Mild intermittent asthma without complication Inhale 2 puffs every 4 (four) hours if needed for wheezing or shortness of breath. Maximum 8 puffs per day 18 g 3 2025 Active EPINEPHrine (Epipen) 0.3 MG/0.3ML injection syringe Inject 0.3 mL (0.3 mg) as directed 1 (one) time for 1 dose. use as directed for allergic reaction and then call 911 2 each 1 Active cetirizine (ZyrTEC) 10 MG tablet Take 1 tablet (10 mg) by mouth Once per day. 90 tablet 3 Active fluticasone (Flonase) 50 MCG/ACT nasal sprayIndication s:Allergic rhinitis, unspecified seasonality, unspecified trigger Administer 1-2 sprays into each nostril Once per day. Shake gently. Before first use, prime pump. After use, clean tip and replace cap. 16 g 2 2025 Active albuterol (2.5 MG/3ML) 0.083% nebulizer [...] 8 puffs per day 18 g 3 2024 Discontinued(R eorder (will not trigger notification to Pharmacy)) cetirizine (ZyrTEC) 10 MG tablet Take 1 tablet (10 mg) by mouth Once per day. 90 tablet 3 2024 Discontinued(R eorder (will not trigger notification to Pharmacy)) EPINEPHrine (Epipen) 0.3 MG/0.3ML injection syringe Inject 0.3 mL (0.3 mg) as directed 1 (one) time for 1 dose. use as directed for allergic reaction and then call 911 2 each 1 2024 Discontinued(R eorder (will not trigger notification to Pharmacy)) fluticasone (Flonase) 50 MCG/ACT nasal sprayIndication s:Allergic rhinitis, unspecified seasonality, unspecified trigger Administer 1-2 sprays into each nostril Once per day. Shake gently. Before first use, prime pump. After use, clean tip and replace cap. 16 g 2 2024 Discontinued(R eorder (will not trigger notification to Pharmacy)) albuterol (2.5 MG/3ML) 0.083% nebulizer solution Take 3 mL (2.5 mg) by nebulization every 4 (four) hours if needed for wheezing or shortness of breath (Maximum 4 treatments per day). 75 mL 1 2024 Discontinued(R eorder (will not trigger notification to Pharmacy)) Active Problems Problem Noted Date Diagnosed Date Left forearm pain 08/16/2024 Left wrist pain 08/16/2024 Assessment & Plan (08/16/2024 9:38 AM EDT): - injured in 2015 - At the time there was no fracture reported - Will re-evaluate with x-ray then possibly with CT scan. Will consider Physical Therapy and will refer to orthopedist after x-ray Dyspnea 04/30/2024 Assessment & Plan (04/30/2024 4:16 [...] work Allergic rhinitis 07/21/2022 Assessment & Plan (08/16/2024 8:52 AM EDT): Previously tried Antihistamines, only medication that worked was Benadryl -Rx Cetrizine, as needed -Rx Flonase, as needed -Referred to [facility] in July 2022 since this condition is Chronic; there is a long waiting list Assessment & Plan (04/25/2024 11:24 AM EST): [...] is Chronic Asthma 05/07/2022 Assessment & Plan (08/16/2024 9:36 AM EDT): - No smoking / vaping since March 2024 - ED visit for asthma exacerbation, treated with prednisone and antibiotic in July 2023 - PFT 06/08/24 - Continue albuterol inhaler Assessment & Plan (04/30/2024 4:15 PM EST): [...] - PHQ9 = 15 - Seen by [facility] clinician today; pt will be connected [...] Encounters Date Type Department Care Team Description 08/16/2024 9:15 AM EDT Office Visit [facility] [address] [facility] [place] [address] Ann-Marie Maldonado MD Allergic rhinitis, unspecified seasonality, unspecified trigger (Primary Dx); Mild intermittent asthma without complication; Left forearm pain; Left wrist pain 08/16/2024 Travel 08/15/2024 Telephone [facility] [address] [place] [address] Ann-Marie Maldonado MD chart prep 08/15/2024 Telephone [facility] [address] [place], [place] [phone] Ann-Marie Maldonado MD 06/04/2024 Telephone [facility] [address] [place], [place] [phone] Kirsten Machado RN ER Follow-up 06/02/2024 Orders Only GENERIC EXTERNAL DATA DEPARTMENT Provider, Generic External Data from Last 3 Months Immunizations Immunization Administration Dates Next Due Hep A, Adult [...] Sign Reading Time Taken Comments Blood Pressure 121/82 08/16/2024 9:11 AM EDT Pulse 64 08/16/2024 9:11 AM EDT Temperature 36.3 ??C (97.3 ??F) 08/16/2024 9:11 AM ED T Respiratory Rate 20 08/16/2024 9:11 AM EDT Oxygen Saturation 98% 08/16/2024 9:11 AM EDT Inhaled Oxygen Concentration - - Weight 70.8 kg (156 lb) 08/16/2024 9:11 AM EDT Height 165.1 cm (5' 5 ) 08/16/2024 9:11 AM EDT Body Mass Index 25.96 08/16/2024 9:11 AM EDT Plan of Treatment Upcoming Encounters Date Type Department Care Team (Late st Contact Info) Description 09/02/2024 9:45 AM EDT Office Visit [facility] OPTOMETRY [address] [place], [place] [phone] Cielo Oliveira, OD [address] [place] [address] Health Maintenance Due Date Last Done Comments Lipid Panel 1996 Family Planning (PISQ) 07/10/2011 COVID-19 Vaccine (3 - 2023-2 5 season) 2023 03/18/2021, 02/18/2021 Influenza Vaccine (#1) 2023 8, 01/30/2014 Hepatitis B Vaccines (2 of 3 - 19+ 3-dose series) 05/30/2024 05/02/2024 Depression Screening 01/11/2025 01/12/2024, 01/12/2024 SDOH Screening 04/14/2025 04/14/2024 Alcohol/Substance Use Screening 04/25/2025 04/25/2024 Disability Screening 08/16/2025 08/16/2024 Tobacco Screening 08/16/2025 08/16/2024 DTaP/Tdap/Td Vaccines (3 - T d or Tdap) 09/06/2033 09/07/2023, 04/10/2017 Zoster Vaccines (1 of 2) 2046 RSV [...] patient's age to complete this topic Meningococcal B Vaccine Aged Out No l onger eligible based on patient's age to complete [...] PANEL Routine 06/02/2024 11:38 AM EST HEPATITIS C AB W/REFL TO HCV RNA, QN, PCR Routine 04/25/2024 11:20 AM EST Routine screening for STI (sexually transmitted infection) HIV 1/2 ANTIGEN/ANTIBODY, FOURTH GENERATION W/RFL Routine 04/25/2024 11:20 AM EST Routine screening for STI (sexually transmitted infection) from Last 3 Months or Most Recently Relevant to Health Maintenance Results * CBC auto differential (06/02/2024 11:39 AM EST) White Blood Count 8.2 4.8 - 10.8 X10*3/uL [facility] Red Blood Count 5.08 4.60 - 5.80 X10*6/uL [facility] Hemoglobin 15.5 14.0 - 18.0 g/dl [facility] Hematocrit 43.6 42.0 - 52.0 % [facility] Mean Corpuscular Volume 85.8 80.0 - 98.0 fL [facility] Mean Corpuscular Hemoglobin 30.5 27.0 - 33.0 pg [facility] Mean Corpuscular HGB Conc 35.6 31.0 - 36.0 g/dl [facility] Red Cell Distribution Width 11.5 11.0 - 16.0 % [facility] Platelet Count 239 160 - 400 X10*3/uL [facility] Mean Platelet Volume 10.5 9.4 - 12.4 fL [facility] Neutrophils Percent Auto 49.3 45 - 73 % [facility] Imm Gran Pct Auto 0.1 0.0 - 0.4 % [facility] Lymphocytes Percent Auto 37.2 20 - 40 % [facility] Monocytes Percent Auto 8.9 2 - 11 % [facility] Eosinophils Percent Auto 3.9 0 - 4 % [facility] Basophils Percent Auto 0.6 0 - 2 % [facility] NRBC Pct Auto 0.0 0.0 - 0.2 /100WBC [facility] Neutrophils Absolute Auto 4.0 2.0 - 8.3 x10*3/uL [facility] Imm Gran Abs Auto 0.01 0.00 - 0.03 X10*3/uL [facility] Lymphocytes Absolute Auto 3.0 1.2 - 4.9 X10*3/uL [facility] Monocytes Absolute Auto 0.7 0.1 - 1.2 X10*3/uL [facility] Eosinophils Absolute Auto 0.3 0.0 - 0.4 X10*3/uL [facility] Basophils Absolute Auto 0.1 0.0 - 0.2 X10*3/uL [facility] NRBC Abs Auto 0.000 0.0 - 0.012 X10*3/uL [facility] 06/02/2024 11:3 9 AM EST 06/02/2024 11:40 AM EST us Generic External Data Provider LAB BLOOD ORDERAB LES Final Result Performing Organization Address City/[facility]/ZIP Co de Phone Number [facility] [address] [place] [phone] * Sed Rate by Modified Dominique (06/02/2024 11:38 AM EST) Erythrocyte Sedimentation Rate 2 0 - 15 MM/HR [facility] Comment:Patients with polycy themia and many hemoglobin abnormalitiesmay have depressed sed rates whereas patients with anemiamay have elevated sed rates. 06/02/2024 11:3 8 AM EST 06/02/2024 11:40 AM EST us Generic External Data Provider LAB BLOOD ORDERAB LES Final Result Performing Organization Address [facility]/ZIP Co de Phone Number [facility] [address] [place] [phone] * C-reactive Protein (06/02/2024 11:38 AM EST) C Reactive Protein <0.10 < or = 0.50 mg/dL [facility] 06/02/2024 11:3 8 AM EST 06/02/2024 11:40 AM EST us Generic External Data Provider LAB BLOOD ORDERAB LES Final Result [facility] [address] [place] [phone] * (ABNORMAL) Comprehensive Metabolic Panel (06/02/2024 11:38 AM EST) Sodium 140 135 - 145 mmol/L [facility] Potassium 4.4 3.3 - 5.1 mmol/L [facility] Chloride 106 96 - 108 mmol/L [facility] Carbon Dioxide 27 22 - 29 mmol/L [facility] Anion Gap 11(L) 12 - 20 [facility] Urea Nitrogen (BUN) 16 9 - 16 mg/dL [facility] Creatinine, Serum 0.93 0.5 - 1.4 mg/dL [facility] Creatinine Clr Calc Pharmacy 114.4 [facility] Comment:eGFR (calculated fro m the MDRD study equation) and eCrCl(calculated from the Cockcroft-Gault equation) are based ondifferent parameters and may not yield comparable results.If eCrCl result is absurd, please check patient'sheight/weight. Estimated Glomerular Filt Rate >60 [facility] Comment:Chronic Kidney Disea se: Estimated GFR < 60 mL/min/1.97o5Gylqmy Kidney Disease: Estimated GFR < 15 mL/min/1.73m2 Glucose 94 60 - 115 mg/dL [facility] Calcium 9.7 8.4 - 10.2 mg/dL [facility] Bilirubin, Total 0.3 0.0 - 1.0 mg/dL [facility] Aspartate Amino Transferase 25 5 - 37 U/L [facility] Alanine Aminotransferase 43(H) 0 - 40 U/L [facility] Total Protein 7.6 6.5 - 8.0 g/dL [facility] Albumin Level 4.4 3.5 - 5.0 g/dL [facility] Alkaline Phosphatase 82 39 - 117 U/L [facility] 06/02/2024 11:3 8 AM EST 06/02/2024 11:40 AM EST us Generic External Data Provider LAB BLOOD ORDERAB LES Final Result Performing Organization Address [facility]/ZIP Co de Phone Number [facility] [address] [place] [phone] * Hepatitis C Antibody with Reflex to HCV, RNA, Quantitative, Real-Time PCR (04/25/2024 11:20 AM EST) Hepatitis C Antibody Nonreactive Nonreactive [facility] Comment:Antibodies to HCV no t detected; does not exclude early acuteHCV infection. Blood Venous blood specimen / Unknown 04/25/2024 11:20 AM EST 04/25/2024 1:28 PM EST us Ann-Marie Maldonado MD LAB BLOOD ORDERABLES Final Resul t Performing Organization Address [facility] Co de Phone Number [facility] [address] [place] [phone] * HIV-1/2 Antigen and Antibodies, Fourth Generation, with Reflexes (04/25/2024 11:20 AM EST) HIV AB/AG Nonreactive Nonreactive [facility] Comment:HIV-1 p24 Ag and/or HIV-1/HIV-2 Ab not detected.A test result that is nonreactive does not exclude thepossibility of exposure to or infection with HIV-1 and/orHIV-2. Nonreactive results in this assay for individualswith prior exposure to HIV-1 and/or HIV-2 may be due toantigen and antibody levels that are below the limit ofdetection of this assay.The [employer] Alinity HIV Ag/Ab Combo assay result andsupplemental assay results should be interpreted inconjunction with the patient's clinical presentation,history and other laboratory results. If the results areinconsistent with clinical evidence, additional testing issuggested to confirm the result. Blood Venous blood specimen / Unknown 04/25/2024 11:20 AM EST 04/25/2024 1:28 PM EST us Ann-Marie Maldonado MD LAB BLOOD ORDERABLES Final Resul t [facility] [address] [place] [phone] from Last 3 Months or Most Recently Relevant to Health Maintenance [facility] Care Teams Casting Room Operator Relationship Specialty Start Date End Date Ann-Marie Maldonado MD [address] [place] [address] PCP - General Family Medicine 05/07/22
--- OUTSIDE RECORDS SUMMARY | 2024-08-16 10:46 | XMS_ITS | Encounter Summary ---
Author Organization [employer] Address [address] [facility] 7t [place] [address] Care Team Providers Care Cotton Picker Name Role Phone Ann-Marie Maldonado MD Primary Care Provider [phone] Encounter Details Date Type Department Care Team (Late st Contact Info) Description 08/16/2024 9:15 AM EDT Office Visit [facility] [address] [place], [place] [phone] Ann-Marie Maldonado MD [address] [place], [place] [phone] Allergic rhinitis, unspecified seasonality, unspecified trigger (Primary Dx); Mild intermittent asthma without complication; Left forearm pain; Left wrist pain Social History Tobacco Use Types Packs/Day Years [...] Mass Index 25.96 08/16/2024 9:11 AM EDT documented in this encounter Miscellaneous Notes * Assessment & Plan Note - Haley Bai MA - 08/16/2024 9:38 AM EDTAssociated Problem(s): Left wrist pain - injured in 2016 - At the time there was no fracture reported - Will re-evaluate with x-ray then possibly with CT scan. Will consider Physical Therapy and will refer to orthopedist after x-ray * Assessment & Plan Note - Haley Bai MA - 08/16/2024 8:52 AM EDTAssociated Problem(s): Allergic rhinitis Previously tried Antihistamines, only medication that worked was Benadryl -Rx Cetrizine, as needed -Rx Flonase, as needed -Referred to [facility] in July 2022 since this condition is Chronic; there is a long waiting list * Assessment & Plan Note - Haley Bai MA - 08/16/2024 8:52 AM EDTAssociated Problem(s): Asthma - No smoking / vaping since March 2024 - ED visit for asthma exacerbation, treated with prednisone and antibiotic in July 2023 - PFT 06/08/24 - Continue albuterol inhaler documented in this encounter Plan of Treatment Upcoming Encounters Date Type Department Care Team (Late st Contact Info) Description 09/02/2024 9:45 AM EDT Office Visit [facility] OPTOMETRY [address] [place] [address] Cielo Oliveira, OD [address] [place] [address] Scheduled Orders Name Type Priority Associated Diagnoses Orde r Schedule XR Wrist 3+ Views Left Imaging Routine Left forearm pain Left wrist pain Expected: 08/16/2024, Expires: 08/16/2025 XR FOREARM 2 VIEWS LEFT Imaging Routine Left forearm pain Left wrist pain Expected: 08/16/2024, Expires: 08/16/2025 documented as of this encounter Visit Diagnoses Diagnosis Allergic rhinitis, unspecified seasonality, unspecified trigger- Primary Mild intermittent asthma without complication Left forearm pain Left wrist pain Pain in joint, forearm documented in this encounter Additional Health Concerns Assessment Noted Time PHQ-9 Depression Total Score: 6 10/15/20 24 11:06 AM EDT documented as of this encounter Care Teams Cotton Picker Relationship Specialty Start Date End Date Ann-Marie Maldonado MD [address] [place] [phone] PCP - General Family Medicine 05/07/22 documented as of this encounter
--- OUTSIDE RECORDS SUMMARY | 2024-08-16 10:46 | XMS_ITS | Encounter Summary ---
Author Organization [employer] Address [address] [facility] 7t [place] [address] Care Team Providers Care [employer] Pe Teacher Name Role Phone Ann-Marie Maldonado MD Primary Care Provider [phone] Encounter Details Date Type Department Care Team (Late st Contact Info) Description 08/15/2024 Telephone [facility] [address] [place], [place] [phone] Ann-Marie Maldonado MD [address] [place], [place] [phone] Social History Tobacco Use Types Packs/Day Years [...] encounter Miscellaneous Notes * Telephone Encounter - Neema Rod - 08/15/2024 8:55 AM EDT Pt was called phone number on file is not active , tried calling to ask for new insurance fd removed old insurance when pt comes in fd will ask for new insurance. documented in this encounter Plan of Treatment Upcoming Encounters Date Type Department Care Team (Late st Contact Info) Description 09/02/2024 9:45 AM EDT Office Visit [facility] [address] [place], [place] [phone] TarCielo waller, OD [address] [place] [address] documented as of this encounter Visit Diagnoses Not on filedocumented in this encounter Additional Health Concerns Assessment Noted Time PHQ-9 Depression Total Score: 6 01/12/20 24 11:06 AM EDT documented as of this encounter Care Teams [employer] Pe Teacher Relationship Specialty Start Date End Date Ann-Marie Maldonado MD [address] [place], [place] [phone] PCP - General Family Medicine 05/07/22 documented as of this encounter
--- OUTSIDE RECORDS SUMMARY | 2024-08-16 10:46 | XMS_ITS | Encounter Summary ---
Author Organization [employer] Address [address] [facility] [address] [place] [address] Care Team Providers Care Grounds Person Name Role Phone Ann-Marie Maldonado MD Primary Care Provider [phone] Reason for Visit * Reason Onset Date Comments chart prep 08/15/2024 Encounter Details Date Type Department Care Team ([facility] st Contact Info) Description 08/15/2024 Telephone [facility] MEDICINE [address] [place], [place] [phone] Ann-Marie Maldonado MD [address] [place], [place] [phone] chart prep Social History Tobacco Use Types Packs/Day Years [...] encounter Miscellaneous Notes * Telephone Encounter - Windy Arias MA - 08/15/2024 9:12 AM EDT Chart Prep Labs: done Images: done Vaccines due: Covid Due, Hep B Due, and Flu Due Referrals: Completed Screenings: Not Applicable Overdue care gaps: Disability documented in this encounter Plan of Treatment Upcoming Encounters Date Type Department Care Team (Late st Contact Info) Description 09/02/2024 9:45 AM EDT Office Visit [facility] OPTOMETRY [address] [place] [address] TarkaCielo, OD [address] [place] [address] documented as of this encounter Visit Diagnoses Not on filedocumented in this encounter Additional Health Concerns Assessment Noted Time PHQ-9 Depression Total Score: 6 01/12/20 24 11:06 AM EDT documented as of this encounter Care Teams Grounds Person Relationship Specialty Start Date End Date Ann-Marie Maldonado MD [address] [place] [address] PCP - General Family Medicine 05/07/22 documented as of this encounter
--- OUTSIDE RECORDS SUMMARY | 2024-08-16 10:46 | XMS_ITS | Encounter Summary ---
Author Organization [employer] Address [address] [facility] 7[address] [place] [address] Care Team Providers Care Kiln Loader Name Role Phone Ann-Marie Maldonado MD Primary Care Provider [phone] Encounter Details Date Type Department Care Team (Latest Contact Info) Description 08/16/2024 Travel Social History Tobacco Use Types Packs/Day [...] as of this encounter Plan of Treatment Upcoming Encounters Date Type Department Care Team (Late st Contact Info) Description 09/02/2024 9:45 AM EDT Office Visit [facility] OPTOMETRY [address] [place] [address] TarkaCielo, OD [address] [place] [address] documented as of this encounter Visit Diagnoses Not on filedocumented in this encounter Additional Health Concerns Assessment Noted Time PHQ-9 Depression Total Score: 6 01/12/20 24 11:06 AM EDT documented as of this encounter Care Teams Kiln Loader Relationship Specialty Start Date End Date Ann-Marie Maldonado MD [address] [place] [address] PCP - General Family Medicine 05/07/22 documented as of this encounter
== END 2024-08-16 09:46 | disposition home or self-care (01) ==
LOC: HO.HHCX 09:45
PROVIDERS: Visit Provider Family Medicine
DX: M25.532 Pain in left wrist (principal); M79.632 Pain in left forearm
CPT/HCPCS: 73090; 73110

== ENCOUNTER → 2024-08-16 09:46 | Outpatient (BNV) | payer OTHER, SELFPAY | PROVIDERS: Visit Provider Radiology Diagnostic Radiology | DX: M25.532 Pain in left wrist (principal); M79.632 Pain in left forearm | CPT/HCPCS: 73090; 73110 ==